=== PATIENT | male | born 1990 | race Caucasian/White ===

== ENCOUNTER 2019-02-26 10:43 | Inpatient (IN) ==
[2019-02-26] MEDS ORDERED: 0.9 % SODIUM CHLORIDE 1,000 ML IV ONE ×2 (10:47→15:46)
[2019-02-26] MEDS ORDERED: oxyCODONE HCL 5 MG TABLET PO PRN (11:07)
[2019-02-26] MEDS ORDERED: fentaNYL 100 MCG/2 ML VIAL IV PRN ×2 (11:10→16:18)
[2019-02-26 11:58] LABS: Hematocrit 40.3 % (41.0-55.0); Hemoglobin 13.4 g/dL (13.5-16.5); Mean Cell Volume 83.2 fL (80.0-100.0); Mean Corpuscular HGB Conc 33.3 g/dL (31.0-36.0); Mean Platelet Volume 10.2 fL (7.4-10.4); Platelet Count 129 K/mcL (140-440); RBC 4.84 M/mcL (4.50-5.90); Red Cell Distribution Width 14.4 % (11.5-14.5); WBC 10.2 K/mcL (4.5-11.0)
[2019-02-26] MEDS: PROMETHAZINE 25 MG/ML VIAL IV PRN ×2 (11:59→17:38)
[2019-02-26] MEDS ORDERED: CLINDAMYCIN 900 MG in DEXTROSE 5% IN WATER 50 ML IV SCH (12:00)
[2019-02-26] MEDS: 0.9 % SODIUM CHLORIDE 1,000 ML IV SCH ×4 (12:00→22:21)
[2019-02-26 12:10] LABS: INR 1.3 (0.9-1.1); Prothrombin Time 16.5 sec (11.9-14.5)
[2019-02-26 12:22] LABS: ALT/SGPT 54 U/l (0-40); AST/SGOT 24 U/l (0-37); Albumin 2.7 gm/dL (3.2-5.2); Albumin/Globulin Ratio 0.9 (1.0-2.3); Alkaline Phosphatase 214 U/L (39-117); Bilirubin,Direct 1.8 mg/dL (0.0-0.3); Bilirubin,Total 2.3 mg/dL (0.0-1.0); Blood Urea Nitrogen 30 mg/dl (6-20); Calcium 8.1 mg/dl (8.6-10.4); Carbon Dioxide 20 mmol/L (22-30); Chloride 98 mmol/L (96-108); Glomerular Filtration Rate 32; Glucose 137 mg/dL (70-105); Lactate Dehydrogenase 121 U/L (94-250); Magnesium 1.7 mg/dL (1.6-2.5); Potassium 3.1 mmol/L (3.3-5.1); Sodium 131 mmol/L (133-145); Triglycerides 228 mg/dl (<150); Uric Acid 6.5 mg/dL (2.5-8.0)
[2019-02-26 12:34] LABS: Hemoglobin A1C 5.3 % HGB (4.0-6.0)
[2019-02-26 12:40] LABS: Band Neutrophils % 23 % (0-10); Eosinophils % (Manual) 5 % (0-7); Monocytes % (Manual) 2 % (1-12); Platelet Estimate DECREASED (NORMAL); RBC Morphology NORMAL (NORMAL); Segmented Neutrophils % 70 % (38-78)
[2019-02-26] MEDS ORDERED: 0.9 % SODIUM CHLORIDE 10 ML SYRINGE IV SCH (14:00)
[2019-02-26] MEDS ORDERED: VANCOMYCIN PER PHARMACY IV SCH ×2 (15:55→18:12)
[2019-02-26] MEDS ORDERED: VANCOMYCIN 1,000 MG in 0.9 % SODIUM CHLORIDE 250 ML IV ONE (16:15)
--- NOTE | 2019-02-26 16:22 | General Surgery Progress Note ---
Subjective Patient reports: still having pain, pain is less Narrative: Note initiated : 02/26/19 at 4:20 pm Service Date, if different from initiated Date: [] Patient: Elder Smith 28 y/o M admitted on 02/26/19 for Cellulitis. Chief Complaint: [the patient complained of feeling weak and sleepy. Blood pressure was done, and systolic blood pressure was stated to be in the 60s. His heart rate was about 100. The patient was warm and dry and responded appropriately to questioning with movement of all extremities. He received 1 L normal saline and his blood pressure increased to 80/50 with a map of 64. He otherwise appears to be clinically stable. He has had 125 cc of urine output since admission. He does not complain of any chest pain or shortness of breath. The pain in his arm is about the same. The level of cellulitis has not advanced from prior exam On his upper medial arm or his chest wall. Repeat CBC and IVP has been ordered along with lactate & CRP] Objective Temp Pulse Resp BP Pulse Ox 98.1 F 125 H 18 101/53 96 02/26/19 11:29 02/26/19 11:29 02/26/19 11:29 02/26/19 11:29 02/26/19 11:29 - Additional Data Intake & Output - Last 24 hours: Intake & Output 02/24/19 02/25/19 02/26/19 02/27/19 05:59 05:59 05:59 05:59 Intake Total 1056 Output Total 125 Balance 931 Weight 345 lb 8 oz - General physical appearance well developed, well nourished, moderate pain - Eyes PERRL, normal ocular movement, icteric - ENT normal pinna, normal nares, normal mucosa, no hearing loss, no congestion - Neck no masses, no bruits, trachea midline, no lymphadenopathy, no venous distension - Respiratory normal expansion, normal respiratory effort, clear to auscultation - Cardiovascular Cardiovascular exam: Present: +S1, +S2, tachycardia (heart rate 160). Absent: JVD - Abdomen non tender (. Abdominal exam remains benign, nontender, without masses with good active bowel sounds), bowel sounds (present), surgical scars (none), masses (none) - Integumentary other ( area of cellulitis of left upper extremity and chest wall is unchanged; area of excoriation of right lateral abdominal wall is about the same) - Neurologic other (. Patient is alert, awake and answers all questions appropriately) - Psychiatric oriented to time, oriented to person, oriented to place, speech is normal, memory intact - Labs 02/26/19 11:24 02/26/19 11:24 Diabetes panel 02/26/19 02/26/19 Range/Units 11:24 11:24 Sodium 131 L (133-145) mmol/L Potassium 3.1 L (3.3-5.1) mmol/L Chloride 98 (96-108) mmol/L Carbon Dioxide 20 L (22-30) mmol/L BUN 30 H (6-20) mg/dl Creatinine 2.6 H (0.7-1.2) mg/dl Glucose 137 H (70-105) mg/dL Hemoglobin A1c 5.3 (4.0-6.0) % HGB Calcium 8.1 L (8.6-10.4) mg/dl AST 24 (0-37) U/l ALT 54 H (0-40) U/l Alkaline Phosphatase 214 H (39-117) U/L Total Protein 5.7 L (5.9-8.4) gm/dL Albumin 2.7 L (3.2-5.2) gm/dL Triglycerides 228 H (<150) mg/dl Calcium panel 02/26/19 Range/Units 11:24 Calcium 8.1 L (8.6-10.4) mg/dl Phosphorus 2.0 L (2.7-4.5) mg/dL Albumin 2.7 L (3.2-5.2) gm/dL Pituitary panel 02/26/19 Range/Units 11:24 Sodium 131 L (133-145) mmol/L Potassium 3.1 L (3.3-5.1) mmol/L Chloride 98 (96-108) mmol/L Carbon Dioxide 20 L (22-30) mmol/L BUN 30 H (6-20) mg/dl Creatinine 2.6 H (0.7-1.2) mg/dl Glucose 137 H (70-105) mg/dL Calcium 8.1 L (8.6-10.4) mg/dl Adrenal panel 02/26/19 Range/Units 11:24 Sodium 131 L (133-145) mmol/L Potassium 3.1 L (3.3-5.1) mmol/L Chloride 98 (96-108) mmol/L Carbon Dioxide 20 L (22-30) mmol/L BUN 30 H (6-20) mg/dl Creatinine 2.6 H (0.7-1.2) mg/dl Glucose 137 H (70-105) mg/dL Calcium 8.1 L (8.6-10.4) mg/dl Total Bilirubin 2.3 H (0.0-1.0) mg/dL AST 24 (0-37) U/l ALT 54 H (0-40) U/l Alkaline Phosphatase 214 H (39-117) U/L Total Protein 5.7 L (5.9-8.4) gm/dL Albumin 2.7 L (3.2-5.2) gm/dL Assessment and Plan (1) Acute sepsis Status: Acute Assessment and plan: Vancomycin and Zosyn added to antibiotic regimen. The Cleocin can be discontinued. Blood cultures are ordered. 1 L bolus of normal saline added. Repeat CBC and IP performed Current Visit: Yes (2) Acute renal injury due to sepsis Status: Acute Assessment and plan: Increase saline boluses and monitor urine output closely Current Visit: Yes (3) Abscess of axilla, left Status: Chronic Current Visit: No - Time Spent With Patient Total time spent is greater than 50% in coordination of care (as documented) at patient's floor/unit and/or counseling patient:
[2019-02-26 16:47] LABS: Basophils # (Auto) 0 K/mcL (0.0-0.3); Basophils % (Auto) 0 % (0.0-2.0); Eosinophils # (Auto) 0.4 K/mcL (0.0-0.7); Eosinophils % (Auto) 4.3 % (0.0-7.0); Granulocytes % (Auto) 89.3 % (38.0-78.0); Hematocrit 39.5 % (41.0-55.0); Hemoglobin 13.1 g/dL (13.5-16.5); Lymphocytes # (Auto) 0.2 K/mcL (1.5-4.8); Lymphocytes % (Auto) 2.5 % (15.5-49.0); Mean Cell Volume 83.5 fL (80.0-100.0); Mean Corpuscular HGB Conc 33.1 g/dL (31.0-36.0); Mean Platelet Volume 10.7 fL (7.4-10.4); Monocytes # (Auto) 0.4 K/mcL (0.1-0.9); Monocytes % (Auto) 3.9 % (1.0-12.0); Platelet Count 130 K/mcL (140-440); RBC 4.73 M/mcL (4.50-5.90); Red Cell Distribution Width 14.9 % (11.5-14.5); WBC 9.5 K/mcL (4.5-11.0)
[2019-02-26] MEDS ORDERED: PANTOPRAZOLE 40 MG TABLET PO SCH (17:00)
--- NOTE | 2019-02-26 17:11 | Internal Medicine Consult Note ---
Medical - CN: HPI - Data of Consult Consult date: 02/26/19 Requesting physician: Gabi Mistry Primary Care Provider: VANIA Shin - Consult Narrative History of present illness: Mr. Smith is a 28 year old M Who presented to the ED on Monday with a swelling in his left axilla diagnosed with skin abscess likely extending from carbuncle. Anabiotic's and tramadol and to follow-up with Dr. Mistry for further evaluation as it is felt that he may need further I&D than what was done in the ED. Patient took Bactrim but seem to have an allergic reaction to it including hives and pruritus. He states his erythema and tenderness is also progressed over the weekend. He saw Dr. Mistry in his office today and was found to be hypotensive as well and systolics in the 70s. And was thus admitted in the hospital. Shortly after admission he was found to be hypotensive. Patient is asymptomatic at rest. However does note that he is quite lightheaded when he is up to move around is been so for the past few days. Had some nausea and chills denies fever. Said a dry cough for couple days. He was found to have a bandemia as well as acute kidney injury. An elevated bilirubin. In August he was evaluated for gallstones. It was thought that he had a gallstone that may have passed at that time he had an ultrasound MRCP which did not catch any stone at that time. He is found to have fatty liver on imaging. But he is noted to have a bilirubin of 2.3 mostly conjugated at this time. Denies any right upper quadrant abdominal pain currently. Review of Systems: Pertinent positives as above. Denies headache/fever/vomiting/chest or abdominal pain/cough/dyspnea/diarrhea. Remaining 10 point review of systems reviewed negative CC: Gabi Mistry MD Medical - CN: PM Medical history: Past medical history: Fatty liver Obesity Hypertension GERD Past surgical history: None Family history: Mother DJD of spine father's history is unknown Social history: Patient quit smoking a year ago Drinks alcohol about 10-15 drinks a month, was a heavy drinker in college. Lives at home with family/ Medical - CN: Meds Home Medications Medication Instructions Recorded Confirmed Type Losartan Potassium 50 mg PO DAILY 10/17/18 02/26/19 History ranitidine 300 mg capsule 300 mg PO BID 02/23/19 02/26/19 History Allergies Allergy/AdvReac Type Severity Reaction Status Date / Time Sulfa (Sulfonamide Allergy Intermediate Hives Verified 02/26/19 10:22 Antibiotics) Medical - CN: Exam - Constitutional Vitals: Temp Pulse Resp BP Pulse Ox 98.8 F 96 H 18 86/50 98 02/26/19 16:02 02/26/19 16:07 02/26/19 11:29 02/26/19 16:07 02/26/19 16:07 Exam: General: Alert, Awake, No acute Distress, obese Eyes/N/T: EOMI, PEERL, DMM Head/Neck: neck supple, normocephalic atraumatic CV: RRR, No murmurs, normal s1/s2 Pulm: Clear b/l, no wheezing/rhonchi/rales Trunk: Induration and surrounding erythema left axillary region Abd: soft, nontender, +BS x4 Ext: no clubbing/cyanosis/edema, cap refill less than 3 seconds, pulses 2+ Neuro: Alert, no focal deficits, moves all extremities, CN 2-12 grossly intact, symmetrical strength b/l upper/lower, sensations intact b/l upper/lower Skin: warm/dry Medical - CN: Result - Labs CBC & Chem 7: 02/26/19 15:50 02/26/19 11:24 Labs: Short CBC 02/26/19 02/26/19 Range/Units 11:24 15:50 WBC 10.2 9.5 (4.5-11.0) K/mcL Hgb 13.4 L 13.1 L (13.5-16.5) g/dL Hct 40.3 L 39.5 L (41.0-55.0) % Plt Count 129 L 130 L (140-440) K/mcL BMP 02/26/19 11:24 Sodium 131 L Potassium 3.1 L Chloride 98 Carbon Dioxide 20 L BUN 30 H Creatinine 2.6 H Glucose 137 H Calcium 8.1 L Liver Function 02/26/19 Range/Units 11:24 Total Bilirubin 2.3 H (0.0-1.0) mg/dL Direct Bilirubin 1.8 H (0.0-0.3) mg/dL GGT 220 H (8-61) U/L AST 24 (0-37) U/l ALT 54 H (0-40) U/l Alkaline Phosphatase 214 H (39-117) U/L Albumin 2.7 L (3.2-5.2) gm/dL Medical - CN: A/P - Narrative A/P Narrative: A: *Left axillary skin abscess with surrounding cellulitis: -Original ED cultures with MSSA *Sepsis, Hypotensive initially but responsive to IV fluids: -Lactic acidosis *Hyperbilirubinemia, conjugated /elevated ALP: *Hyponatremia/hypokalemia: *LYLY: 2/2 above *Fatty liver: *Obesity: *HTN: On losartan 50 mill grams daily *GERD: * P: -IVF's -Zosyn/vanco, deescalate pending blood cx -Dr. Mistry on case -PRN electrolyte replacement -GB u/s -ARB held - -ppx: Lovenox/home PPI
[2019-02-26 17:13] LABS: ALT/SGPT 49 U/l (0-40); AST/SGOT 22 U/l (0-37); Albumin 2.6 gm/dL (3.2-5.2); Albumin/Globulin Ratio 0.9 (1.0-2.3); Alkaline Phosphatase 188 U/L (39-117); Bilirubin,Direct 1.8 mg/dL (0.0-0.3); Bilirubin,Total 2.3 mg/dL (0.0-1.0); Blood Urea Nitrogen 32 mg/dl (6-20); Carbon Dioxide 19 mmol/L (22-30); Chloride 101 mmol/L (96-108); Globulin 2.9 gm/dL (2.2-3.7); Glomerular Filtration Rate 28; Glucose 91 mg/dL (70-105); Lactate Dehydrogenase 121 U/L (94-250); Magnesium 1.8 mg/dL (1.6-2.5); Phosphorous 2.9 mg/dL (2.7-4.5); Potassium 3.1 mmol/L (3.3-5.1); Sodium 134 mmol/L (133-145); Triglycerides 229 mg/dl (<150); Uric Acid 6.5 mg/dL (2.5-8.0)
[2019-02-26] MEDS ORDERED: POTASSIUM CHLORIDE 20 MEQ TABLET PO ONE (17:16)
[2019-02-26] MEDS ORDERED: PIPERACILLIN SODIUM/TAZOBACTAM 3.375 GM in DEXTROSE 5% IN WATER 50 ML IV SCH (18:00)
[2019-02-26] MEDS ORDERED: ACETAMINOPHEN 325 MG TABLET PO PRN (19:54)
[2019-02-26 20:03] LABS: Appearance,Urine HAZY; Bilirubin,Urine NEG (NEG); Color,Urine YELLOW; Culture Indicated,Urine NO; Glucose,Urine (UA) NEGATIVE (NEG); Ketones,Urine NEG (NEG); Leukocyte Esterase,Urine NEG /uL (NEG); Nitrate,Urine NEG (NEG); Protein,Urine NEG (NEG); Specific Gravity,Urine 1.011 (1.000-1.035); Urine Blood NEG mg/dL (<0.03)
[2019-02-26] MEDS: DOCUSATE SODIUM 100 MG CAPSULE PO SCH (20:39)
[2019-02-26] MEDS ORDERED: DOCUSATE SODIUM 100 MG CAPSULE PO SCH (21:00)
[2019-02-26] MEDS: VANCOMYCIN 1,500 MG in 0.9 % SODIUM CHLORIDE 500 ML IV SCH (21:32)
[2019-02-26] MEDS: 0.9 % SODIUM CHLORIDE 10 ML SYRINGE IV SCH (21:43)
[2019-02-26] MEDS ORDERED: VANCOMYCIN 1,500 MG in 0.9 % SODIUM CHLORIDE 500 ML IV SCH (22:00)
[2019-02-26] MEDS: PIPERACILLIN SODIUM/TAZOBACTAM 3.375 GM in DEXTROSE 5% IN WATER 50 ML IV SCH (23:31)
[2019-02-27] MEDS: fentaNYL 100 MCG/2 ML VIAL IV PRN ×5 (00:16→23:30)
[2019-02-27] MEDS ORDERED: NOREPINEPHRINE BITARTRATE 4 MG/4 ML VIAL IV ONE (03:05)
[2019-02-27] MEDS: 0.9 % SODIUM CHLORIDE 250 ML IV SCH ×2 (03:23→20:11)
[2019-02-27] MEDS: NOREPINEPHRINE BITARTRATE 16 MG in 0.9 % SODIUM CHLORIDE 234 ML IV SCH (03:23)
[2019-02-27] MEDS: 0.9 % SODIUM CHLORIDE 1,000 ML IV SCH ×4 (03:25→20:12)
[2019-02-27] MEDS: ACETAMINOPHEN 650 MG/65 ML BOTTLE IV PRN ×2 (03:33→08:06)
[2019-02-27 05:22] LABS: Hematocrit 37.2 % (41.0-55.0); Hemoglobin 12.5 g/dL (13.5-16.5); Mean Cell Volume 83.7 fL (80.0-100.0); Mean Corpuscular HGB Conc 33.6 g/dL (31.0-36.0); Mean Platelet Volume 10.6 fL (7.4-10.4); Platelet Count 155 K/mcL (140-440); RBC 4.44 M/mcL (4.50-5.90); Red Cell Distribution Width 14.8 % (11.5-14.5); WBC 13.8 K/mcL (4.5-11.0)
[2019-02-27 05:42] LABS: ALT/SGPT 45 U/l (0-40); AST/SGOT 18 U/l (0-37); Albumin 2.6 gm/dL (3.2-5.2); Albumin/Globulin Ratio 0.8 (1.0-2.3); Alkaline Phosphatase 185 U/L (39-117); Bilirubin,Direct 2.5 mg/dL (0.0-0.3); Bilirubin,Total 3.1 mg/dL (0.0-1.0); Blood Urea Nitrogen 30 mg/dl (6-20); Calcium 7.9 mg/dl (8.6-10.4); Carbon Dioxide 18 mmol/L (22-30); Chloride 102 mmol/L (96-108); Globulin 3.1 gm/dL (2.2-3.7); Glomerular Filtration Rate 33; Glucose 95 mg/dL (70-105); Lactate Dehydrogenase 138 U/L (94-250); Magnesium 1.6 mg/dL (1.6-2.5); Phosphorous 2.5 mg/dL (2.7-4.5); Potassium 3.6 mmol/L (3.3-5.1); Sodium 133 mmol/L (133-145); Triglycerides 244 mg/dl (<150); Uric Acid 5.3 mg/dL (2.5-8.0)
[2019-02-27] MEDS: 0.9 % SODIUM CHLORIDE 10 ML SYRINGE IV SCH ×5 (05:47→22:27)
[2019-02-27] MEDS: PIPERACILLIN SODIUM/TAZOBACTAM 3.375 GM in DEXTROSE 5% IN WATER 50 ML IV SCH (05:47)
[2019-02-27 06:07] LABS: Band Neutrophils % 6 % (0-10); Eosinophils % (Manual) 4 % (0-7); Lymphocytes % 4 % (15-49); Monocytes % (Manual) 3 % (1-12); Platelet Estimate NORMAL (NORMAL); RBC Morphology NORMAL (NORMAL); Segmented Neutrophils % 83 % (38-78)
--- NOTE | 2019-02-27 06:23 | Internal Med Progress Note ---
Medical - PN: Subj Patient information: Note initiated : 02/27/19 at 6:17 am Service Date, if different from initiated Date: [] Patient: Elder Smith 28 y/o M admitted on 02/26/19 for Cellulitis. Chief Complaint: [] Interval history: Mr. Smith is a 28 year old M Who presented to the ED on Monday with a swelling in his left axilla diagnosed with skin abscess likely extending from carbuncle. Anabiotic's and tramadol and to follow-up with Dr. Mistry for further evaluation as it is felt that he may need further I&D than what was done in the ED. Patient took Bactrim but seem to have an allergic reaction to it including hives and pruritus. He states his erythema and tenderness is also progressed over the weekend. He saw Dr. Mistry in his office today and was found to be hypotensive as well and systolics in the 70s. And was thus admitted in the hospital. Shortly after admission he was found to be hypotensive. Patient is asymptomatic at rest. However does note that he is quite lightheaded when he is up to move around is been so for the past few days. Had some nausea and chills denies fever. Said a dry cough for couple days. He was found to have a bandemia as well as acute kidney injury. An elevated bilirubin. In August he was evaluated for gallstones. It was thought that he had a gallstone that may have passed at that time he had an ultrasound MRCP which did not catch any stone at that time. He is found to have fatty liver on imaging. But he is noted to have a bilirubin of 2.3 mostly conjugated at this time. Denies any right upper quadrant abdominal pain currently. 02/27 Patient's blood pressure trended down overnight had to be put on vasopressors. Febrile overnight. States he feels about the same as yesterday, Tired. Has a dry cough no other complaints. Review of Systems: denies headache/fever/chills/nausea/vomiting/chest or abdominal pain/cough/dyspnea/diarrhea. Otherwise see above. - Constitutional Vitals: Vital Signs Temp Pulse Resp BP Pulse Ox 99.8 F H 106 H 23 H 110/59 96 02/27/19 04:16 02/27/19 04:16 02/27/19 04:16 02/27/19 04:16 02/27/19 04:16 Period Temp Pulse Resp BP Sys/Calderón Pulse Ox Last 24 Hr 97.9 F-101.2 F 93-125 16-33 71-124/37-81 92-100 Intake and Output 02/26/19 02/27/19 02/27/19 21:59 05:59 13:59 Intake Total 2620 3215 Output Total 125 1125 Balance 2495 2090 Weight 160.209 kg Intake & Output: Intake & Output 02/26/19 02/27/19 02/27/19 21:59 05:59 13:59 Intake Total 2620 3215 Output Total 125 1125 Balance 2495 2090 Weight 160.209 kg Intake: IV 2300 1615 Sodium Chloride 0.9% 1,000 ml @ 1000 1000 200 mls/hr IV .Q5H [facility] Rx#: [id number] Zosyn 3.375 gm In Dextrose 5% 50 50 in Water 50 ml @ 100 mls/hr IV Q6H [facility] Rx#:[id number] Vancomycin 1,000 mg In Sodium 250 Chloride 0.9% 250 ml @ 250 mls/ hr IV ONCE ONE Rx#:[id number] Vancomycin 1,500 mg In Sodium 500 Chloride 0.9% 500 ml @ 333.3 mls/hr IV Q12H [facility] Rx#: [id number] Oral 320 1600 Output: Void Amount 125 1125 Other: Urine Appearance Clear Sediment Urine Color Dark Mercedez Dark Mercedez Urine Odor Strong Exam: General: Alert, Awake, No acute Distress, obese Eyes/N/T: EOMI, Head/Neck: neck supple, CV: RRR, No murmurs, Pulm: Clear b/l, no wheezing/rhonchi/rales Trunk: Induration and surrounding erythema left axillary region, TTP Abd: soft, nontender, +BS x4 Ext: no clubbing/cyanosis Neuro: Alert, no focal deficits, moves all extremities, Skin: warm/dry Medical - PN: Obj Da - Labs CBC & Chem 7: 02/27/19 03:51 02/27/19 03:51 Labs: Abnormal Lab Results 02/27/19 02/27/19 02/26/19 03:51 03:51 19:26 WBC 13.8 H RBC 4.44 L Hgb 12.5 L Hct 37.2 L RDW 14.8 H Plt Count MPV 10.6 H Gran % Lymph % (Auto) Gran # Lymph # (Auto) Seg Neutrophils % 83 H Band Neutrophils % Lymphocytes % 4 L Platelet Estimate PT INR Sodium Potassium Carbon Dioxide 18 L BUN 30 H Creatinine 2.5 H Glucose Calcium 7.9 L Phosphorus 2.5 L Total Bilirubin 3.1 H Direct Bilirubin 2.5 H GGT 204 H ALT 45 H Alkaline Phosphatase 185 H C-Reactive Protein Total Protein 5.7 L Albumin 2.6 L Albumin/Globulin Ratio 0.8 L Triglycerides 244 H Urine Urobilinogen 2.0 A 02/26/19 02/26/19 02/26/19 15:50 15:50 15:50 WBC RBC Hgb 13.1 L Hct 39.5 L RDW 14.9 H Plt Count 130 L MPV 10.7 H Gran % 89.3 H Lymph % (Auto) 2.5 L Gran # 8.5 H Lymph # (Auto) 0.2 L Seg Neutrophils % Band Neutrophils % Lymphocytes % Platelet Estimate PT INR Sodium Potassium 3.1 L Carbon Dioxide 19 L BUN 32 H Creatinine 2.9 H Glucose Calcium 8.0 L Phosphorus Total Bilirubin 2.3 H Direct Bilirubin 1.8 H GGT 211 H ALT 49 H Alkaline Phosphatase 188 H C-Reactive Protein 20.1 H Total Protein 5.5 L Albumin 2.6 L Albumin/Globulin Ratio 0.9 L Triglycerides 229 H Urine Urobilinogen 02/26/19 02/26/19 02/26/19 11:24 11:24 11:24 WBC RBC Hgb 13.4 L Hct 40.3 L RDW Plt Count 129 L MPV Gran % Lymph % (Auto) Gran # Lymph # (Auto) Seg Neutrophils % Band Neutrophils % 23 H Lymphocytes % Platelet Estimate Decreased A PT 16.5 H INR 1.3 H Sodium 131 L Potassium 3.1 L Carbon Dioxide 20 L BUN 30 H Creatinine 2.6 H Glucose 137 H Calcium 8.1 L Phosphorus 2.0 L Total Bilirubin 2.3 H Direct Bilirubin 1.8 H GGT 220 H ALT 54 H Alkaline Phosphatase 214 H C-Reactive Protein Total Protein 5.7 L Albumin 2.7 L Albumin/Globulin Ratio 0.9 L Triglycerides 228 H Urine Urobilinogen Meds: Medications Acetaminophen (Tylenol) 650 mg PO Q4HP PRN PRN Reason: PAIN/FEVER > 101 Last Admin: 02/26/19 20:30 Dose: 650 mg Documented by: Docusate Sodium (Colace) 100 mg PO BID [facility] Last Admin: 02/26/19 20:39 Dose: Not Given Documented by: Enoxaparin Sodium (Lovenox) 40 mg SQ DAILY [facility] Fentanyl (Sublimaze) 25 mcg IV Q3HP PRN PRN Reason: PAIN LEVEL > 6 Last Admin: 02/27/19 03:58 Dose: 25 mcg Documented by: Sodium Chloride (Sodium Chloride 0.9%) 1,000 mls @ 200 mls/hr IV .Q5H [facility] Last Admin: 02/27/19 03:25 Dose: 200 mls/hr Documented by: Piperacillin Sod/Tazobactam (Sod 3.375 gm/ Dextrose) 50 mls @ 100 mls/hr IV Q6H [facility]; Protocol Last Admin: 02/27/19 05:47 Dose: 100 mls/hr Documented by: Vancomycin HCl 1,500 mg/ (Sodium Chloride) 500 mls @ 333.3 mls/hr IV Q12H [facility] Last Infusion: 02/27/19 04:26 Dose: Infused Documented by: Acetaminophen (Ofirmev) 650 mg in 65 mls @ 130 mls/hr IV Q4-6HP PRN PRN Reason: PAIN/FEVER > 101 Last Infusion: 02/27/19 04:26 Dose: Infused Documented by: Norepinephrine Bitartrate 16 (mg/ Sodium Chloride) 250 mls @ 9.38 mls/hr IV Q24H [facility]; Protocol Last Admin: 02/27/19 03:23 Dose: 10 mcg/min, 9.38 mls/hr Documented by: Sodium Chloride (Sodium Chloride 0.9%) 250 mls @ 20 mls/hr IV .[id number] [facility] Last Admin: 02/27/19 03:23 Dose: 15 mls/hr Documented by: Pantoprazole Sodium (Protonix) 40 mg PO BIDAC [facility] Promethazine HCl (Phenergan) 12.5 mg IV Q6HP PRN PRN Reason: Nausea And Vomiting Sodium Chloride (Saline Flush) 10 ml IV Q8 [facility] Last Admin: 02/27/19 05:47 Dose: Not Given Documented by: Vancomycin HCl (Vancomycin Per Pharmacy) 1 order IV UD [facility]; Protocol Medical - PN: A/P - Time Spent With Patient Total time spent is greater than 50% in coordination of care (as documented) at patient's floor/unit and/or counseling patient: - Narrative A/P Narrative: A: *Left axillary skin abscess with surrounding cellulitis: -Original ED cultures with MSSA *Septic Shock: 2/2 above -febrile, lactate ok, bandemia improved *LYLY, concern for ATN: 2/2 above -good UOP *Hyponatremia/hypokalemia: resolved *Hyperbilirubinemia, conjugated /elevated ALP: -GB unremarkable, a few polyps but no stones -cholestasis suspect related to Sepsis*Fatty liver: *Obesity: *HTN: On losartan 50 mill grams daily *GERD: * P: -IVF's -vasopressor, wean off -PICC, monitor CVP's -broaden Zosyn to merrem for now given worsening clinical status/vanco, deescalate as soon as able. Did get IV clindamycin yesterday. -pending BC -monitor PCT -CT imaging of infection site, -Dr. Mistry on case -PRN electrolyte replacement -ARB held for hypoTN - -ppx: Lovenox/home PPI
[2019-02-27] MEDS: PANTOPRAZOLE 40 MG TABLET PO SCH ×2 (07:38→17:33)
[2019-02-27] MEDS: DOCUSATE SODIUM 100 MG CAPSULE PO SCH ×3 (08:08→20:41)
--- NOTE | 2019-02-27 08:43 | Ultrasound Report ---
History: Obstructive liver enzymes FINDINGS: The liver is mildly enlarged. The parenchyma is mildly echogenic suggesting mild fatty infiltration. There is no evidence of a mass. Doppler shows normal blood flow in the hepatic and portal veins. Size of liver has not changed significantly from the prior abdomen CT done on 08/17/18. Within the neck of the gallbladder there is a 2 x 3 x 4 mm noncalcified nodule. This did not move. This is probably a small polyp. Two small polyps or seen in the gallbladder on the prior ultrasound done on 08/17/18. Only one is clearly identified on today's study. Gallbladder wall is normal in thickness and measures 2 mm. Patient was nontender while scanning over the gallbladder. The common bile duct is mildly dilated measures 5 mm. There is no dilatation of the intrahepatic ducts. Common bile duct measured 4.6 mm on 08/17/18. Visualized portions of the pancreas are normal. Portions are obscured by overlying bowel gas. No ascites is present. IMPRESSION: Small polyp in the neck of the gallbladder and no evidence of thickening or inflammation of the gallbladder wall. Mildly dilated common bile duct. Mild hepatomegaly with mild fatty infiltration Interpreted and Authenticated by: Venancio Decker 02/27/19
[2019-02-27] MEDS ORDERED: ENOXAPARIN 40 MG/0.4 ML SYRINGE SQ SCH ×2 (09:00)
[2019-02-27] MEDS: VANCOMYCIN 1,500 MG in 0.9 % SODIUM CHLORIDE 500 ML IV SCH ×2 (09:29→22:28)
[2019-02-27] MEDS ORDERED: ALBUMIN HUMAN 12.5 GM/50 ML BAG IV ONE (09:56)
[2019-02-27] MEDS ORDERED: MEROPENEM 1 GM in 0.9 % SODIUM CHLORIDE 50 ML IV SCH (10:00)
--- NOTE | 2019-02-27 10:48 | Cat Scan Report ---
CLINICAL INFORMATION: Cellulitis and edema in the left axilla, evaluate for abscess COMPARISON: None TECHNIQUE: 2.5 mm axial slices were obtained from the lung apices through the bases without intravenous contrast. Sagittal, coronal and axial reformatted images were processed and reviewed at bone, lung and soft tissue windows. 7 mm axial MIP images were also reconstructed. Radiation exposure was limited using dose reduction technology. FINDINGS: There is moderate edema/cellulitis in the left axilla and the anterior left lateral chest wall. There are a few reactive lymph nodes in the left axilla which measure up to 1.4 x 2.4 cm. There is no evidence of a mass or abscess in this region. Patient does have mild bilateral gynecomastia. There are multiple small scattered ill-defined nodular infiltrates throughout both lungs. The greatest involvement is in the upper lobes and superior segments of the lower lobes. There is milder involvement in the lung bases. The majority of them are located towards the periphery of the lung. The largest and most densely consolidated infiltrate abuts the pleura superiorly and medially in the right lower lobe. It Measures 1.5 x 2.2 cm. There is no central necrosis of any of the infiltrates or pulmonary abscess. No lobar consolidation is present. The central airways appear normal. There is no pleural effusion and there are no enlarged lymph nodes within the mediastinum or lopez. The heart is normal in size and contour. The aorta is normal in caliber. IMPRESSION: Cellulitis in the left axilla and left anterolateral chest wall Multiple small nodular infiltrates in both lungs. This is a nonspecific pattern which may be associated with atypical infection such as an opportunistic infection, fungal infection, noninfectious organizing pneumonia, cryptogenic organizing pneumonia and collagen vascular disease. Interpreted and Authenticated by: Venancio Decker 02/27/19
--- NOTE | 2019-02-27 13:44 | General Surgery Progress Note ---
Subjective Patient reports: feels better, pain is less, tolerating a regular diet, flatus, no bowel movement, fever Narrative: Note initiated : 02/27/19 at 1:43 pm Service Date, if different from initiated Date: [] Patient: Elder Smith 28 y/o M admitted on 02/26/19 for Cellulitis. Chief Complaint: [patient states that he feels better. He has less discomfort in the left upper extremity. He feels stronger. He has had a low-grade temperature up to 100.5. He remains tachycardic, but his blood pressure is bett er controlled with a map of 85. White blood count 13.8, hemoglobin 12.5, hematocrit 37.2, BUN 30, creatinine 2.5. Gallbladder ultrasound was normal except for small polyp. CT does not reveal any residual abscess in the axilla, but he does have nodular infiltrates peripherally in both lungs. These will have to be monitored closely.] Objective Temp Pulse Resp BP Pulse Ox 98.9 F 108 H 21 129/76 100 02/27/19 12:00 02/27/19 12:00 02/27/19 12:00 02/27/19 12:00 02/27/19 12:00 - Additional Data Intake & Output - Last 24 hours: Intake & Output 02/25/19 02/26/19 02/27/19 02/28/19 05:59 05:59 05:59 05:59 Intake Total 6891 2489 Output Total 1250 3975 Balance 5641 -1486 Weight 353 lb 3.2 oz - General physical appearance well developed, well nourished, no distress - Eyes PERRL, normal ocular movement - ENT normal pinna, normal nares, normal mucosa, no congestion - Neck no masses, no bruits, trachea midline, no lymphadenopathy, no venous distension - Respiratory normal expansion, normal respiratory effort, clear to auscultation - Cardiovascular Cardiovascular exam: Present: normal rate and rhythm, +S1, +S2, tachycardia. Absent: JVD - Abdomen soft, non tender, bowel sounds, masses - Integumentary other (cellulitis of left anterior chest, left upper medial extremity is significantly improved and is regressing) - Neurologic normal coordination, normal sensation - Musculoskeletal normal gait, normal posture - Psychiatric oriented to time, oriented to person, oriented to place, speech is normal, memory intact - Labs 02/27/19 03:51 02/27/19 03:51 Diabetes panel 02/26/19 02/27/19 Range/Units 15:50 03:51 Sodium 134 133 (133-145) mmol/L Potassium 3.1 L 3.6 (3.3-5.1) mmol/L Chloride 101 102 (96-108) mmol/L Carbon Dioxide 19 L 18 L (22-30) mmol/L BUN 32 H 30 H (6-20) mg/dl Creatinine 2.9 H 2.5 H (0.7-1.2) mg/dl Glucose 91 95 (70-105) mg/dL Calcium 8.0 L 7.9 L (8.6-10.4) mg/dl AST 22 18 (0-37) U/l ALT 49 H 45 H (0-40) U/l Alkaline Phosphatase 188 H 185 H (39-117) U/L Total Protein 5.5 L 5.7 L (5.9-8.4) gm/dL Albumin 2.6 L 2.6 L (3.2-5.2) gm/dL Triglycerides 229 H 244 H (<150) mg/dl Calcium panel 02/26/19 02/27/19 Range/Units 15:50 03:51 Calcium 8.0 L 7.9 L (8.6-10.4) mg/dl Phosphorus 2.9 2.5 L (2.7-4.5) mg/dL Albumin 2.6 L 2.6 L (3.2-5.2) gm/dL Pituitary panel 02/26/19 02/27/19 Range/Units 15:50 03:51 Sodium 134 133 (133-145) mmol/L Potassium 3.1 L 3.6 (3.3-5.1) mmol/L Chloride 101 102 (96-108) mmol/L Carbon Dioxide 19 L 18 L (22-30) mmol/L BUN 32 H 30 H (6-20) mg/dl Creatinine 2.9 H 2.5 H (0.7-1.2) mg/dl Glucose 91 95 (70-105) mg/dL Calcium 8.0 L 7.9 L (8.6-10.4) mg/dl Adrenal panel 02/26/19 02/27/19 Range/Units 15:50 03:51 Sodium 134 133 (133-145) mmol/L Potassium 3.1 L 3.6 (3.3-5.1) mmol/L Chloride 101 102 (96-108) mmol/L Carbon Dioxide 19 L 18 L (22-30) mmol/L BUN 32 H 30 H (6-20) mg/dl Creatinine 2.9 H 2.5 H (0.7-1.2) mg/dl Glucose 91 95 (70-105) mg/dL Calcium 8.0 L 7.9 L (8.6-10.4) mg/dl Total Bilirubin 2.3 H 3.1 H (0.0-1.0) mg/dL AST 22 18 (0-37) U/l ALT 49 H 45 H (0-40) U/l Alkaline Phosphatase 188 H 185 H (39-117) U/L Total Protein 5.5 L 5.7 L (5.9-8.4) gm/dL Albumin 2.6 L 2.6 L (3.2-5.2) gm/dL Assessment and Plan (1) Acute sepsis Status: Acute Assessment and plan: Vancomycin and Zosyn added to antibiotic regimen. The Cleocin can be dis continued. Blood cultures are ordered Current Visit: Yes (2) Acute renal injury due to sepsis Status: Acute Assessment and plan: Increase saline boluses and monitor urine output closely Current Visit: Yes (3) Abscess of axilla, left Status: Chronic Current Visit: No - Time Spent With Patient Total time spent is greater than 50% in coordination of care (as documented) at patient's floor/unit and/or counseling patient:
[2019-02-27] MEDS: ceFAZolin 1 GM VIAL IV SCH ×2 (14:53→22:27)
[2019-02-27] MEDS ORDERED: ACETAMINOPHEN 325 MG TABLET PO SCH (15:00)
--- NOTE | 2019-02-27 15:24 | Ultrasound Report ---
History: Pain and swelling left axilla and status post recent surgical drainage of an abscess in the axilla FINDINGS: There is generalized induration of the skin and deep subcutaneous tissues in the left axilla. This corresponds with the region of pain and swelling. There is no evidence of residual or recurrent abscess. No enlarged lymph nodes are identified. There is no seroma. IMPRESSION: Cellulitis and no evidence recurrent abscess Interpreted and Authenticated by: Venancio Decker 02/27/19
[2019-02-27] MEDS: ENOXAPARIN 40 MG/0.4 ML SYRINGE SQ SCH (20:08)
[2019-02-27] MEDS: oxyCODONE HCL 5 MG TABLET PO PRN ×2 (20:09→23:30)
[2019-02-27] MEDS: ACETAMINOPHEN 500 MG TABLET PO SCH (20:09)
[2019-02-27] MEDS: PROMETHAZINE 25 MG/ML VIAL IV PRN (20:11)
[2019-02-27] MEDS: traZODone HCL 50 MG TABLET PO PRN ×2 (22:30→23:02)
[2019-02-28] MEDS: 0.9 % SODIUM CHLORIDE 1,000 ML IV SCH ×4 (00:09→07:29)
[2019-02-28] MEDS: PROMETHAZINE 25 MG/ML VIAL IV PRN ×3 (02:11→20:44)
[2019-02-28] MEDS: NOREPINEPHRINE BITARTRATE 16 MG in 0.9 % SODIUM CHLORIDE 234 ML IV SCH (02:38)
[2019-02-28] MEDS: 0.9 % SODIUM CHLORIDE 250 ML IV SCH ×2 (02:38→14:51)
[2019-02-28] MEDS: oxyCODONE HCL 5 MG TABLET PO PRN ×4 (03:48→22:19)
[2019-02-28 05:24] LABS: Hematocrit 34.7 % (41.0-55.0); Hemoglobin 11.8 g/dL (13.5-16.5); Mean Cell Volume 82.9 fL (80.0-100.0); Mean Corpuscular HGB Conc 33.9 g/dL (31.0-36.0); Mean Platelet Volume 10.1 fL (7.4-10.4); Platelet Count 144 K/mcL (140-440); RBC 4.19 M/mcL (4.50-5.90); Red Cell Distribution Width 15.2 % (11.5-14.5); WBC 10.5 K/mcL (4.5-11.0)
[2019-02-28 05:46] LABS: ALT/SGPT 33 U/l (0-40); AST/SGOT 16 U/l (0-37); Albumin 2.5 gm/dL (3.2-5.2); Albumin/Globulin Ratio 0.8 (1.0-2.3); Alkaline Phosphatase 167 U/L (39-117); Bilirubin,Direct 1.9 mg/dL (0.0-0.3); Bilirubin,Total 2.7 mg/dL (0.0-1.0); Blood Urea Nitrogen 14 mg/dl (6-20); Calcium 8.2 mg/dl (8.6-10.4); Carbon Dioxide 19 mmol/L (22-30); Chloride 108 mmol/L (96-108); Glomerular Filtration Rate 81; Glucose 112 mg/dL (70-105); Lactate Dehydrogenase 136 U/L (94-250); Magnesium 1.8 mg/dL (1.6-2.5); Potassium 3.3 mmol/L (3.3-5.1); Sodium 139 mmol/L (133-145); Triglycerides 188 mg/dl (<150); Uric Acid 3.9 mg/dL (2.5-8.0)
[2019-02-28] MEDS: ceFAZolin 1 GM VIAL IV SCH ×3 (05:51→22:06)
[2019-02-28] MEDS: 0.9 % SODIUM CHLORIDE 10 ML SYRINGE IV SCH ×3 (05:52→22:07)
[2019-02-28 06:09] LABS: Band Neutrophils % 17 % (0-10); Eosinophils % (Manual) 7 % (0-7); Lymphocytes % 11 % (15-49); Monocytes % (Manual) 4 % (1-12); Platelet Estimate NORMAL (NORMAL); RBC Morphology NORMAL (NORMAL); Segmented Neutrophils % 61 % (38-78); Toxic Granulation 2+ (NONE SEEN)
[2019-02-28] MEDS ORDERED: NOREPINEPHRINE BITARTRATE 16 MG in 0.9 % SODIUM CHLORIDE 234 ML IV PRN (07:15)
[2019-02-28] MEDS ORDERED: POTASSIUM CHLORIDE 20 MEQ PACKET PO ONE (07:30)
[2019-02-28] MEDS: PANTOPRAZOLE 40 MG TABLET PO SCH ×2 (07:38→17:47)
[2019-02-28] MEDS ORDERED: 0.9 % SODIUM CHLORIDE 1,000 ML IV SCH (07:59)
[2019-02-28] MEDS: LACTATED RINGERS 1,000 ML IV SCH ×2 (08:30→22:20)
[2019-02-28] MEDS: LEVOFLOXACIN 750 MG/150 ML BAG IV SCH (08:30)
--- NOTE | 2019-02-28 09:03 | Internal Med Progress Note ---
Medical - PN: Subj Patient information: Note initiated : 02/28/19 at 9:01 am Service Date, if different from initiated Date: [] Patient: Elder Smith a 28 y/o M admitted on 02/26/19 for Cellulitis. Chief Complaint: [] Interval history: Mr. Smith is a 28 year old M Who presented to the ED on Monday with a swelling in his left axilla diagnosed with skin abscess likely extending from carbuncle. Anabiotic's and tramadol and to follow-up with Dr. Mistry for further evaluation as it is felt that he may need further I&D than what was done in the ED. Patient took Bactrim but seem to have an allergic reaction to it including hives and pruritus. He states his erythema and tenderness is also progressed over the weekend. He saw Dr. Mistry in his office today and was found to be hypotensive as well and systolics in the 70s. And was thus admitted in the hospital. Shortly after admission he was found to be hypotensive. Patient is asymptomatic at rest. However does note that he is quite lightheaded when he is up to move around is been so for the past few days. Had some nausea and chills denies fever. Said a dry cough for couple days. He was found to have a bandemia as well as acute kidney injury. An elevated bilirubin. In August he was evaluated for gallstones. It was thought that he had a gallstone that may have passed at that time he had an ultrasound MRCP which did not catch any stone at that time. He is found to have fatty liver on imaging. But he is noted to have a bilirubin of 2.3 mostly conjugated at this time. Denies any right upper quadrant abdominal pain currently. 02/27 Patient's blood pressure trended down overnight had to be put on vasopressors. Febrile overnight. States he feels about the same as yesterday, Tired. Has a dry cough no other complaints. 02/28 Patient seen examined, no acute issues, patient has no pain today, but has low grade fevers, notes cough x [address] reviewed yesterday, has astrid peripheral infiltrates ? atypical infection? inflammatory disease? embolic episode? echo neg for vegetations, blood cultures neg so far Pt tachycardic at baseline with significant worsening with activity, labs show improved wbc count, but still has 17 bands, creat back to normal, BP stable, not on pressors x 24 hrs, procalcitonin is trending down. good urine output. USG axilla neg for loculations Get Chest ct r/o PE, given persistent tachycardia in light of clinically improving infection , will also help look at the progress of pulmonary lesions a gain repeat blood cultures, sputum cx, urine legionella, strep, mycoplasma start on IV levofloxacin to cover for atypical organisms, and possible resp pathogens. Wound culture was growing staph, pt on anceph and vanco for cellulitis. Pertinent ROS: Denies headache, dizziness Denies chest pain, palpitations cough present, no shortness of breath Denies abdominal pain, nausea or vomiting. - Constitutional Vitals: Vital Signs Temp Pulse Resp BP Pulse Ox 100.4 F H 114 H 26 H 110/75 95 02/28/19 07:31 02/28/19 06:00 02/28/19 07:31 02/28/19 07:31 02/28/19 07:31 Period Temp Pulse Resp BP Sys/Calderón Pulse Ox Last 24 Hr 98.9 F-100.5 F 95-162 10-33 85-140/41-112 90-100 Intake and Output 02/27/19 02/28/19 02/28/19 21:59 05:59 13:59 Intake Total 2996 2459 1400 Output Total 2675 1350 725 Balance 321 1109 675 Weight 363 lb 12.8 oz Intake & Output: Intake & Output 02/27/19 02/28/19 02/28/19 21:59 05:59 13:59 Intake Total 2996 2459 1400 Output Total 2675 1350 725 Balance 321 1109 675 Weight 363 lb 12.8 oz Intake: IV 2456 1659 1000 Sodium Chloride 0.9% 1,000 ml @ 2000 1000 1000 200 mls/hr IV .Q5H WIN Rx#: [id number] Sodium Chloride 0.9% 250 ml @ 250 59 20 mls/hr IV .[id number] WIN Rx#: [id number] Merrem 1 gm In Sodium Chloride 50 0.9% 50 ml @ 100 mls/hr IV Q8H WIN Rx#:[id number] Levophed 16 mg In Sodium 100 Chloride 0.9% 234 ml @ 10 MCG/ MIN 9.38 mls/hr IV Q24H WIN Rx# :[id number] Zosyn 3.375 gm In Dextrose 5% 50 in Water 50 ml @ 100 mls/hr IV Q6H WIN Rx#:[id number] Vancomycin 1,500 mg In Sodium 106 500 Chloride 0.9% 500 ml @ 333.3 mls/hr IV Q12H WIN Rx#: [id number] Oral 540 800 400 Output: Void Amount 2675 1350 725 Other: Urine Appearance Clear Clear Clear Urine Color Light Mercedez Light Mercedez Dark Mercedez Mcadoo Urine Odor Strong Normal Exam: Constitutional; Afebrile, cooperative, alert, not in distress. Morbidly obese Respiratory system: Air Entry equal on both sides, mild basilar crackles, left > right no wheezing, no rhonchi. CVS- Rate rhythm regular, S1,S2 heard, no gallop, no rub. Abdomen- Soft nontender abdomen, no organomegaly, no tenderness, no guarding or rigidity, [employer]- AOOx3, moving all extremities, no gross focal deficit noted. Left axilla celluti.lits stable, not as tender Medical - PN: Obj Da - Labs CBC & Chem 7: 02/28/19 03:59 02/28/19 03:59 Labs: Abnormal Lab Results 02/28/19 02/28/19 02/27/19 03:59 03:59 03:51 WBC RBC 4.19 L Hgb 11.8 L Hct 34.7 L RDW 15.2 H Plt Count MPV Gran % Lymph % (Auto) Gran # Lymph # (Auto) Seg Neutrophils % Band Neutrophils % 17 H Lymphocytes % 11 L WBC Morphology Abnorm A Toxic Granulation 2+ A Platelet Estimate PT INR Sodium Potassium Carbon Dioxide 19 L 18 L BUN 30 H Creatinine 2.5 H Glucose 112 H Calcium 8.2 L 7.9 L Phosphorus 2.0 L 2.5 L Total Bilirubin 2.7 H 3.1 H Direct Bilirubin 1.9 H 2.5 H GGT 175 H 204 H ALT 45 H Alkaline Phosphatase 167 H 185 H C-Reactive Protein Total Protein 5.5 L 5.7 L Albumin 2.5 L 2.6 L Albumin/Globulin Ratio 0.8 L 0.8 L Triglycerides 188 H 244 H Urine Urobilinogen 02/27/19 02/26/19 02/26/19 03:51 19:26 15:50 WBC 13.8 H RBC 4.44 L Hgb 12.5 L Hct 37.2 L RDW 14.8 H Plt Count MPV 10.6 H Gran % Lymph % (Auto) Gran # Lymph # (Auto) Seg Neutrophils % 83 H Band Neutrophils % Lymphocytes % 4 L WBC Morphology Toxic Granulation Platelet Estimate PT INR Sodium Potassium Carbon Dioxide BUN Creatinine Glucose Calcium Phosphorus Total Bilirubin Direct Bilirubin GGT ALT Alkaline Phosphatase C-Reactive Protein 20.1 H Total Protein Albumin Albumin/Globulin Ratio Triglycerides Urine Urobilinogen 2.0 A 02/26/19 02/26/19 02/26/19 15:50 15:50 11:24 WBC RBC Hgb 13.1 L Hct 39.5 L RDW 14.9 H Plt Count 130 L MPV 10.7 H Gran % 89.3 H Lymph % (Auto) 2.5 L Gran # 8.5 H Lymph # (Auto) 0.2 L Seg Neutrophils % Band Neutrophils % Lymphocytes % WBC Morphology Toxic Granulation Platelet Estimate PT 16.5 H INR 1.3 H Sodium Potassium 3.1 L Carbon Dioxide 19 L BUN 32 H Creatinine 2.9 H Glucose Calcium 8.0 L Phosphorus Total Bilirubin 2.3 H Direct Bilirubin 1.8 H GGT 211 H ALT 49 H Alkaline Phosphatase 188 H C-Reactive Protein Total Protein 5.5 L Albumin 2.6 L Albumin/Globulin Ratio 0.9 L Triglycerides 229 H Urine Urobilinogen 02/26/19 02/26/19 11:24 11:24 WBC RBC Hgb 13.4 L Hct 40.3 L RDW Plt Count 129 L MPV Gran % Lymph % (Auto) Gran # Lymph # (Auto) Seg Neutrophils % Band Neutrophils % 23 H Lymphocytes % WBC Morphology Toxic Granulation Platelet Estimate Decreased A PT INR Sodium 131 L Potassium 3.1 L Carbon Dioxide 20 L BUN 30 H Creatinine 2.6 H Glucose 137 H Calcium 8.1 L Phosphorus 2.0 L Total Bilirubin 2.3 H Direct Bilirubin 1.8 H GGT 220 H ALT 54 H Alkaline Phosphatase 214 H C-Reactive Protein Total Protein 5.7 L Albumin 2.7 L Albumin/Globulin Ratio 0.9 L Triglycerides 228 H Urine Urobilinogen Meds: Medications Acetaminophen (Tylenol) 1,000 mg PO TID [facility] Last Admin: 02/27/19 20:09 Dose: 1,000 mg Documented by: Cefazolin Sodium (Ancef) 2 gm IV Q8H [facility]; Protocol Last Admin: 02/28/19 05:51 Dose: 2 gm Documented by: Docusate Sodium (Colace) 100 mg PO BID [facility] Last Admin: 02/27/19 20:41 Dose: Not Given Documented by: Enoxaparin Sodium (Lovenox) 40 mg SQ BID [facility] Last Admin: 02/27/19 20:08 Dose: 40 mg Documented by: Fentanyl (Sublimaze) 25 mcg IV Q3HP PRN PRN Reason: PAIN LEVEL > 6 Last Admin: 02/27/19 23:30 Dose: 25 mcg Documented by: Vancomycin HCl 1,500 mg/ (Sodium Chloride) 500 mls @ 333.3 mls/hr IV Q12H [facility] Last Infusion: 02/28/19 00:07 Dose: Infused Documented by: Acetaminophen (Ofirmev) 650 mg in 65 mls @ 130 mls/hr IV Q4-6HP PRN PRN Reason: PAIN/FEVER > 101 Last Infusion: 02/27/19 09:20 Dose: Infused Documented by: Sodium Chloride (Sodium Chloride 0.9%) 250 mls @ 20 mls/hr IV .[id number] [facility] Last Admin: 02/28/19 02:38 Dose: Not Given Documented by: Norepinephrine Bitartrate 16 (mg/ Sodium Chloride) 250 mls @ 9.38 mls/hr IV Q24HP PRN; Protocol PRN Reason: Hypotension Levofloxacin (Levaquin) 750 mg in 150 mls @ 100 mls/hr IV Q24H [facility] Last Admin: 02/28/19 08:30 Dose: 100 mls/hr Documented by: Lactated Ringer's (Lactated Ringers) 1,000 mls @ 75 mls/hr IV .[id number] [facility] Last Admin: 02/28/19 08:30 Dose: 75 mls/hr Documented by: Oxycodone HCl (Roxicodone) 5 mg PO Q4HP PRN PRN Reason: PAIN LEVEL 3-6 Last Admin: 02/28/19 03:48 Dose: 5 mg Documented by: [facility] Last Admin: 02/28/19 07:38 Dose: 40 mg Documented by: Promethazine HCl (Phenergan) 12.5 mg IV Q6HP PRN PRN Reason: Nausea And Vomiting Last Admin: 02/28/19 02:11 Dose: 12.5 mg Documented by: Sodium Chloride (Saline Flush) 10 ml IV Q8 [facility] Last Admin: 02/28/19 05:52 Dose: Not Given Documented by: Trazodone HCl (Desyrel) 50 - 100 mg PO HS PRN PRN Reason: Insomnia Last Admin: 02/27/19 22:30 Dose: 50 mg Documented by: Vancomycin HCl (Vancomycin Per Pharmacy) 1 order IV UD [facility]; Protocol Medical - PN: A/P - Time Spent With Patient Total time spent is greater than 50% in coordination of care (as documented) at patient's floor/unit and/or counseling patient: - Narrative A/P Narrative: A: *Left axillary skin abscess with surrounding cellulitis: -Original ED cultures with MSSA -USG neg, CT neg for abscess -Clinically Stable -on vancomycin and anceph for now. *Septic Shock: 2/2 above -febrile, lactate ok, bandemia present -off pressors, good Urine output, *LYLY, concern for ATN: 2/2 above -good UOP -Creat back to baseline, 1.2 today *Hyponatremia/hypokalemia: resolved *Hyperbilirubinemia, conjugated /elevated ALP: -GB unremarkable, a few polyps but no stones -cholestasis suspect related to Sepsis*Fatty liver: -stable and trending down *Obesity Morbid BMI 49 *HTN: On losartan 50 mill grams daily, held *GERD *Atypical Pneumonia -Repeat Blood cultures -on vanco and levofloxacin for now -repeat sputum cx *Tachycardia -Echo neg -check tsh -get CTA for evaluation of pulmonary embolus. -ppx: Lovenox/home PPI
[2019-02-28] MEDS ORDERED: IOPAMIDOL 100 ML BOTTLE IV ONE ×2 (09:58)
[2019-02-28] MEDS: ENOXAPARIN 40 MG/0.4 ML SYRINGE SQ SCH ×2 (10:23→20:09)
[2019-02-28] MEDS: ACETAMINOPHEN 500 MG TABLET PO SCH ×3 (10:23→20:09)
--- NOTE | 2019-02-28 10:23 | Cat Scan Report ---
CLINICAL INFORMATION: Shortness of breath, recently drained abscess in left axilla and nodular infiltrates in both lungs COMPARISON: Chest CT on 02/27/19 TECHNIQUE: Axial images obtained through the chest. intravenous contrast administration was administered, and scanning was performed during pulmonary arterial phase. Sagittally and coronally reformatted images were obtained. MIP reformatted images. The radiation exposure was limited using dose reduction technology. FINDINGS: There are multiple ill-defined nodular infiltrates throughout both lungs. Most of them are located towards the periphery of the lung. They have increased in both size and number since yesterday. There is no central cavitation. The largest is pleural-based and located medially in the superior segment of the right lower lobe. It measures 1.8 x 3.0 cm. It measured 1.5 x 2.2 cm in yesterday's study. Right diaphragm is mild to moderately elevated. There is respiration motion artifact, especially in the lung bases. The central and lobar pulmonary arteries are normal without evidence of embolus. Due to motion artifact the peripheral branches of the pulmonary arteries, in the lung bases are more difficult to evaluate but grossly normal. There is no pleural effusion. No abnormally enlarged lymph nodes are present in the mediastinum or lopez. The heart size is towards upper limits of normal. No calcified plaque is seen in the coronary arteries nor the aorta. Beneath the skin in the lateral aspect of left axilla there is a lobulated nodular density with indistinct margins. Measures approximately 2 x 2.3 x 5.2 cm. Along the lateral border of this there is a small bubble of air following the recent drainage procedure. The subcutaneous structure was outside the field of view on yesterday's chest CT. The reactive lymph nodes in left axilla have not enlarged. IMPRESSION: No evidence of pulmonary emboli. However, due to motion artifact, the peripheral branches adjacent to the diaphragm cannot be adequately evaluated. Increasing number and size of the multiple nodular infiltrates throughout both lungs. The rapid change would suggest this is most likely due to an infection. Phlegmon versus residual collapsed abscess in the left axilla. There is surrounding cellulitis. Interpreted and Authenticated by: Venancio Decker 02/28/19
[2019-02-28] MEDS: DOCUSATE SODIUM 100 MG CAPSULE PO SCH ×3 (10:26→20:15)
[2019-02-28] MEDS: VANCOMYCIN 1,500 MG in 0.9 % SODIUM CHLORIDE 500 ML IV SCH ×2 (10:36→17:47)
--- NOTE | 2019-02-28 12:19 | General Surgery Progress Note ---
Subjective Patient reports: feels better, pain is less, fever, other (increasing cough) Narrative: Note initiated : 02/28/19 at 12:16 pm Service Date, if different from initiated Date: [] Patient: Elder Smith 28 y/o M admitted on 02/26/19 for Cellulitis. Chief Complaint: [patient states that he feels better. He has less discomfort in his left upper extremity and axilla. The tenderness of the tissues of the ax illa, upper medial arm and anterior chest on the left side, significantly improved. He has developed a cough which is new from yesterday. A follow-up CTA shows increasing nodular infiltrates in both lungs compatible with developing pneumonitis. Antibiotics have been adjusted accordingly. White b lood count 10.5, hemoglobin 11.8, phosphorus 2, bilirubin and LFTs are trending downward. BUN is 12 and creatinine 1.2.] Objective Temp Pulse Resp BP Pulse Ox 100.5 F H 102 H 25 H 109/53 93 02/28/19 12:01 02/28/19 12:01 02/28/19 12:01 02/28/19 12:01 02/28/19 12:01 - Additional Data Intake & Output - Last 24 hours: Intake & Output 02/26/19 02/27/19 02/28/19 03/01/19 05:59 05:59 05:59 05:59 Intake Total 6891 7944 2250 Output Total 1250 8000 725 Balance 5641 -56 1525 Weight 353 lb 3.2 oz 363 lb 12.8 oz - General physical appearance well developed, well nourished, no distress - Eyes PERRL, normal ocular movement - ENT normal pinna, normal nares, normal mucosa, no hearing loss, no congestion - Neck no masses, no bruits, trachea midline, no lymphadenopathy, no venous distension - Respiratory other (scattered rhonchi in both lung mena with scattered coarse rales but no wheezes noted) - Cardiovascular Cardiovascular exam: Present: normal rate and rhythm, +S1, +S2, tachycardia. Absent: JVD - Abdomen non tender, bowel sounds (present), surgical scars (none), masses (none) - Rectum normal sphincter tone, no hemorrhoids, no tenderness, no masses, no bleeding - Integumentary no rash, no growths, no abnormal pigmentation - Neurologic normal coordination, normal sensation - Musculoskeletal normal gait, normal posture - Psychiatric oriented to time, oriented to person, oriented to place, speech is normal, memory intact - Labs 02/28/19 03:59 02/28/19 03:59 Diabetes panel 02/28/19 Range/Units 03:59 Sodium 139 (133-145) mmol/L Potassium 3.3 (3.3-5.1) mmol/L Chloride 108 (96-108) mmol/L Carbon Dioxide 19 L (22-30) mmol/L BUN 14 (6-20) mg/dl Creatinine 1.2 (0.7-1.2) mg/dl Glucose 112 H (70-105) mg/dL Calcium 8.2 L (8.6-10.4) mg/dl AST 16 (0-37) U/l ALT 33 (0-40) U/l Alkaline Phosphatase 167 H (39-117) U/L Total Protein 5.5 L (5.9-8.4) gm/dL Albumin 2.5 L (3.2-5.2) gm/dL Triglycerides 188 H (<150) mg/dl Thyroid panel 02/28/19 Range/Units 08:25 TSH 2.55 (0.27-5.01) uIU/ml Calcium panel 02/28/19 Range/Units 03:59 Calcium 8.2 L (8.6-10.4) mg/dl Phosphorus 2.0 L (2.7-4.5) mg/dL Albumin 2.5 L (3.2-5.2) gm/dL Pituitary panel 02/28/19 02/28/19 Range/Units 03:59 08:25 Sodium 139 (133-145) mmol/L Potassium 3.3 (3.3-5.1) mmol/L Chloride 108 (96-108) mmol/L Carbon Dioxide 19 L (22-30) mmol/L BUN 14 (6-20) mg/dl Creatinine 1.2 (0.7-1.2) mg/dl Glucose 112 H (70-105) mg/dL Calcium 8.2 L (8.6-10.4) mg/dl TSH 2.55 (0.27-5.01) uIU/ml Adrenal panel 02/28/19 Range/Units 03:59 Sodium 139 (133-145) mmol/L Potassium 3.3 (3.3-5.1) mmol/L Chloride 108 (96-108) mmol/L Carbon Dioxide 19 L (22-30) mmol/L BUN 14 (6-20) mg/dl Creatinine 1.2 (0.7-1.2) mg/dl Glucose 112 H (70-105) mg/dL Calcium 8.2 L (8.6-10.4) mg/dl Total Bilirubin 2.7 H (0.0-1.0) mg/dL AST 16 (0-37) U/l ALT 33 (0-40) U/l Alkaline Phosphatase 167 H (39-117) U/L Total Protein 5.5 L (5.9-8.4) gm/dL Albumin 2.5 L (3.2-5.2) gm/dL Assessment and Plan (1) Acute sepsis Status: Acute Assessment and plan: Clinically improved with each passing day; white blood count 10.5 Current Visit: Yes (2) Acute renal injury due to sepsis Status: Acute Assessment and plan: Acute kidney injury has resolved. BUN and creatinine are normal Current Visit: Yes (3) Abscess of axilla, left Status: Chronic Assessment and plan: Significant reduction in induration and erythema of the axilla, anterior left chest medial upper arm. No drainage noted from the abscess cavity Current Visit: No - Time Spent With Patient Total time spent is greater than 50% in coordination of care (as documented) at patient's floor/unit and/or counseling patient:
[2019-02-28] MEDS ORDERED: ALPRAZolam 0.5 MG TABLET PO PRN (19:15)
[2019-02-28] MEDS: traZODone HCL 50 MG TABLET PO PRN (23:53)
[2019-03-01] MEDS: LACTATED RINGERS 1,000 ML IV SCH ×2 (00:47→10:10)
[2019-03-01] MEDS: VANCOMYCIN 1,500 MG in 0.9 % SODIUM CHLORIDE 500 ML IV SCH ×3 (02:03→17:33)
[2019-03-01 04:59] LABS: Basophils # (Auto) 0 K/mcL (0.0-0.3); Basophils % (Auto) 0.2 % (0.0-2.0); Eosinophils # (Auto) 0.5 K/mcL (0.0-0.7); Eosinophils % (Auto) 5.4 % (0.0-7.0); Granulocytes % (Auto) 76.5 % (38.0-78.0); Hematocrit 34.2 % (41.0-55.0); Hemoglobin 11.6 g/dL (13.5-16.5); Lymphocytes # (Auto) 0.7 K/mcL (1.5-4.8); Lymphocytes % (Auto) 7.9 % (15.5-49.0); Mean Cell Volume 83.3 fL (80.0-100.0); Mean Corpuscular HGB Conc 33.8 g/dL (31.0-36.0); Mean Platelet Volume 9.4 fL (7.4-10.4); Monocytes # (Auto) 0.9 K/mcL (0.1-0.9); Platelet Count 140 K/mcL (140-440); Red Cell Distribution Width 15.7 % (11.5-14.5); WBC 9.3 K/mcL (4.5-11.0)
[2019-03-01] MEDS: ceFAZolin 1 GM VIAL IV SCH ×3 (05:19→21:30)
[2019-03-01] MEDS: 0.9 % SODIUM CHLORIDE 10 ML SYRINGE IV SCH ×3 (05:19→21:30)
[2019-03-01] MEDS: 0.9 % SODIUM CHLORIDE 250 ML IV SCH (05:20)
[2019-03-01 05:22] LABS: ALT/SGPT 26 U/l (0-40); AST/SGOT 15 U/l (0-37); Albumin 2.5 gm/dL (3.2-5.2); Albumin/Globulin Ratio 0.8 (1.0-2.3); Alkaline Phosphatase 164 U/L (39-117); Bilirubin,Direct 1.1 mg/dL (0.0-0.3); Bilirubin,Total 1.6 mg/dL (0.0-1.0); Blood Urea Nitrogen 10 mg/dl (6-20); Calcium 8.2 mg/dl (8.6-10.4); Carbon Dioxide 25 mmol/L (22-30); Chloride 104 mmol/L (96-108); Glomerular Filtration Rate 101; Glucose 101 mg/dL (70-105); Lactate Dehydrogenase 132 U/L (94-250); Magnesium 1.9 mg/dL (1.6-2.5); Potassium 3.2 mmol/L (3.3-5.1); Sodium 137 mmol/L (133-145); Triglycerides 181 mg/dl (<150); Uric Acid 4.1 mg/dL (2.5-8.0)
[2019-03-01] MEDS: LEVOFLOXACIN 750 MG/150 ML BAG IV SCH (07:20)
[2019-03-01] MEDS: PANTOPRAZOLE 40 MG TABLET PO SCH ×2 (07:20→17:06)
[2019-03-01] MEDS ORDERED: POTASSIUM CHLORIDE 20 MEQ TABLET PO SCH (08:30)
[2019-03-01] MEDS ORDERED: oxyCODONE HCL 5 MG TABLET PO PRN (08:41)
[2019-03-01] MEDS ORDERED: VANCOMYCIN PER PHARMACY IV SCH (08:41)
[2019-03-01] MEDS ORDERED: ACETAMINOPHEN 650 MG/65 ML BOTTLE IV PRN (08:41)
[2019-03-01] MEDS ORDERED: fentaNYL 100 MCG/2 ML VIAL IV PRN (08:41)
[2019-03-01] MEDS ORDERED: traZODone HCL 50 MG TABLET PO PRN (08:41)
[2019-03-01] MEDS ORDERED: 0.9 % SODIUM CHLORIDE 250 ML IV SCH (08:41)
[2019-03-01] MEDS: DOCUSATE SODIUM 100 MG CAPSULE PO SCH ×3 (09:06→20:17)
[2019-03-01] MEDS: ENOXAPARIN 40 MG/0.4 ML SYRINGE SQ SCH ×2 (09:06→20:15)
[2019-03-01] MEDS: ACETAMINOPHEN 500 MG TABLET PO SCH ×3 (09:06→20:15)
[2019-03-01] MEDS: POTASSIUM CHLORIDE 20 MEQ TABLET PO SCH ×2 (09:09→17:06)
--- NOTE | 2019-03-01 09:46 | Internal Med Progress Note ---
Medical - PN: Subj Patient information: Note initiated : 03/01/19 at 9:28 am Service Date, if different from initiated Date: [] Patient: Elder Smith a 28 y/o M admitted on 02/26/19 for Cellulitis. Chief Complaint: [] Interval history: Mr. Smith is a 28 year old M Who presented to the ED on Monday with a swelling in his left axilla diagnosed with skin abscess likely extending from carbuncle. Anabiotic's and tramadol and to follow-up with Dr. Mistry for further evaluation as it is felt that he may need further I&D than what was done in the ED. Patient took Bactrim but seem to have an allergic reaction to it including hives and pruritus. He states his erythema and tenderness is also progressed over the weekend. He saw Dr. Mistry in his office today and was found to be hypotensive as well and systolics in the 70s. And was thus admitted in the hospital. Shortly after admission he was found to be hypotensive. Patient is asymptomatic at rest. However does note that he is quite lightheaded when he is up to move around is been so for the past few days. Had some nausea and chills denies fever. Said a dry cough for couple days. He was found to have a bandemia as well as acute kidney injury. An elevated bilirubin. In August he was evaluated for gallstones. It was thought that he had a gallstone that may have passed at that time he had an ultrasound MRCP which did not catch any stone at that time. He is found to have fatty liver on imaging. But he is noted to have a bilirubin of 2.3 mostly conjugated at this time. Denies any right upper quadrant abdominal pain currently. 02/27 Patient's blood pressure trended down overnight had to be put on vasopressors. Febrile overnight. States he feels about the same as yesterday, Tired. Has a dry cough no other complaints. 02/28 Patient seen examined, no acute issues, patient has no pain today, but has low grade fevers, notes cough x [address] reviewed yesterday, has astrid peripheral infiltrates ? atypical infection? inflammatory disease? embolic episode? echo neg for vegetations, blood cultures neg so far Pt tachycardic at baseline with significant worsening with activity, labs show improved wbc count, but still has 17 bands, creat back to normal, BP stable, not on pressors x 24 hrs, procalcitonin is trending down. good urine output. USG axilla neg for loculations Get Chest ct r/o PE, given persistent tachycardia in light of clinically improving infection , will also help look at the progress of pulmonary lesions a gain repeat blood cultures, sputum cx, urine legionella, strep, mycoplasma start on IV levofloxacin to cover for atypical organisms, and possible resp pathogens. Wound culture was growing staph, pt on anceph and vanco for cellulitis. 03/01 Patient seen examined, comfortable in bed, a bit drowsy after IV pain medication Denies any new complaints or concerns, labs show normal wbc count, low K, but neg microbiology, sputum cs is gpc chains and pairs, Clinically improving with levofloxacin/vanco/cefazolin. Transfer patient to medical floor status Pertinent ROS: Denies headache, dizziness Denies chest pain, palpitations Denies cough or shortness of breath Denies abdominal pain, nausea or vomiting. - Constitutional Vitals: Vital Signs Temp Pulse Resp BP Pulse Ox 99.2 F H 101 H 25 H 127/80 92 03/01/19 08:18 03/01/19 08:18 03/01/19 08:18 03/01/19 08:18 03/01/19 08:18 Period Temp Pulse Resp BP Sys/Calderón Pulse Ox Last 24 Hr 97.0 F-101.1 F 99-114 19-31 104-157/39-108 91-99 Intake and Output 02/28/19 03/01/19 03/01/19 21:59 05:59 13:59 Intake Total 2940 1850 700 Output Total 1900 1750 900 Balance 1040 100 -200 Weight 374 lb 12.8 oz Intake & Output: Intake & Output 02/28/19 03/01/19 03/01/19 21:59 05:59 13:59 Intake Total 2940 1850 700 Output Total 1900 1750 900 Balance 1040 100 -200 Weight 374 lb 12.8 oz Intake: IV 1500 500 Lactated Ringers 1,000 ml @ 75 1000 mls/hr IV .[id number] [facility] Rx#: [id number] Vancomycin 1,500 mg In Sodium 500 500 Chloride 0.9% 500 ml @ 333.3 mls/hr IV Q8H [facility] Rx#:[id number] Oral 1440 1350 700 Output: Void Amount 1900 1750 900 Other: Urine Appearance Clear Clear Urine Color Straw Light [place] Stool Size Small Stool Color Brown Stool Consistency Soft Formed # Bowel Movements 1 Exam: Constitutional; Afebrile, cooperative, drowsy, not in distress. Respiratory system: Air Entry equal on both sides, No crackles or wheezing, no rhonchi. CVS- Rate rhythm regular, S1,S2 heard, no gallop, no rub. Abdomen- Soft nontender abdomen, no organomegaly, no tenderness, no guarding or rigidity, [employer]- AOOx3, moving all extremities, no gross focal deficit noted. Medical - PN: Obj Da - Labs CBC & Chem 7: 03/01/19 04:15 03/01/19 04:15 Labs: Abnormal Lab Results 03/01/19 03/01/19 02/28/19 04:15 04:15 03:59 WBC RBC 4.10 L Hgb 11.6 L Hct 34.2 L RDW 15.7 H Plt Count MPV Gran % Lymph % (Auto) 7.9 L Gran # Lymph # (Auto) 0.7 L Seg Neutrophils % Band Neutrophils % Lymphocytes % WBC Morphology Toxic Granulation Platelet Estimate PT INR Sodium Potassium 3.2 L Carbon Dioxide 19 L BUN Creatinine Glucose 112 H Calcium 8.2 L 8.2 L Phosphorus 2.0 L Total Bilirubin 1.6 H 2.7 H Direct Bilirubin 1.1 H 1.9 H GGT 192 H 175 H ALT Alkaline Phosphatase 164 H 167 H C-Reactive Protein Total Protein 5.5 L 5.5 L Albumin 2.5 L 2.5 L Albumin/Globulin Ratio 0.8 L 0.8 L Triglycerides 181 H 188 H Urine Urobilinogen 02/28/19 02/27/19 02/27/19 03:59 03:51 03:51 WBC 13.8 H RBC 4.19 L 4.44 L Hgb 11.8 L 12.5 L Hct 34.7 L 37.2 L RDW 15.2 H 14.8 H Plt Count MPV 10.6 H Gran % Lymph % (Auto) Gran # Lymph # (Auto) Seg Neutrophils % 83 H Band Neutrophils % 17 H Lymphocytes % 11 L 4 L WBC Morphology Abnorm A Toxic Granulation 2+ A Platelet Estimate PT INR Sodium Potassium Carbon Dioxide 18 L BUN 30 H Creatinine 2.5 H Glucose Calcium 7.9 L Phosphorus 2.5 L Total Bilirubin 3.1 H Direct Bilirubin 2.5 H GGT 204 H ALT 45 H Alkaline Phosphatase 185 H C-Reactive Protein Total Protein 5.7 L Albumin 2.6 L Albumin/Globulin Ratio 0.8 L Triglycerides 244 H Urine Urobilinogen 02/26/19 02/26/19 02/26/19 19:26 15:50 15:50 WBC RBC Hgb 13.1 L Hct 39.5 L RDW 14.9 H Plt Count 130 L MPV 10.7 H Gran % 89.3 H Lymph % (Auto) 2.5 L Gran # 8.5 H Lymph # (Auto) 0.2 L Seg Neutrophils % Band Neutrophils % Lymphocytes % WBC Morphology Toxic Granulation Platelet Estimate PT INR Sodium Potassium Carbon Dioxide BUN Creatinine Glucose Calcium Phosphorus Total Bilirubin Direct Bilirubin GGT ALT Alkaline Phosphatase C-Reactive Protein 20.1 H Total Protein Albumin Albumin/Globulin Ratio Triglycerides Urine Urobilinogen 2.0 A 02/26/19 02/26/19 02/26/19 15:50 11:24 11:24 WBC RBC Hgb Hct RDW Plt Count MPV Gran % Lymph % (Auto) Gran # Lymph # (Auto) Seg Neutrophils % Band Neutrophils % Lymphocytes % WBC Morphology Toxic Granulation Platelet Estimate PT 16.5 H INR 1.3 H Sodium 131 L Potassium 3.1 L 3.1 L Carbon Dioxide 19 L 20 L BUN 32 H 30 H Creatinine 2.9 H 2.6 H Glucose 137 H Calcium 8.0 L 8.1 L Phosphorus 2.0 L Total Bilirubin 2.3 H 2.3 H Direct Bilirubin 1.8 H 1.8 H GGT 211 H 220 H ALT 49 H 54 H Alkaline Phosphatase 188 H 214 H C-Reactive Protein Total Protein 5.5 L 5.7 L Albumin 2.6 L 2.7 L Albumin/Globulin Ratio 0.9 L 0.9 L Triglycerides 229 H 228 H Urine Urobilinogen 02/26/19 11:24 WBC RBC Hgb 13.4 L Hct 40.3 L RDW Plt Count 129 L MPV Gran % Lymph % (Auto) Gran # Lymph # (Auto) Seg Neutrophils % Band Neutrophils % 23 H Lymphocytes % WBC Morphology Toxic Granulation Platelet Estimate Decreased A PT INR Sodium Potassium Carbon Dioxide BUN Creatinine Glucose Calcium Phosphorus Total Bilirubin Direct Bilirubin GGT ALT Alkaline Phosphatase C-Reactive Protein Total Protein Albumin Albumin/Globulin Ratio Triglycerides Urine Urobilinogen Meds: Medications Acetaminophen (Tylenol) 1,000 mg PO TID [facility] Last Admin: 03/01/19 09:06 Dose: 1,000 mg Documented by: Alprazolam (Xanax) 0.5 mg PO TIDP PRN PRN Reason: Anxiety Cefazolin Sodium (Ancef) 2 gm IV Q8H [facility]; Protocol Docusate Sodium (Colace) 100 mg PO BID [facility] Last Admin: 03/01/19 09:06 Dose: 100 mg Documented by: Enoxaparin Sodium (Lovenox) 40 mg SQ BID [facility] Last Admin: 03/01/19 09:06 Dose: 40 mg Documented by: Lactated Ringer's (Lactated Ringers) 1,000 mls @ 75 mls/hr IV .[id number] [facility] Levofloxacin (Levaquin) 750 mg in 150 mls @ 100 mls/hr IV Q24H [facility] Vancomycin HCl 1,500 mg/ (Sodium Chloride) 500 mls @ 333.3 mls/hr IV Q8H [facility] Oxycodone HCl (Roxicodone) 5 mg PO Q4HP PRN PRN Reason: PAIN LEVEL 3-6 Pantoprazole Sodium (Protonix) 40 mg PO BIDAC [facility] Potassium Chloride (Kdur) 20 meq PO BIDCC [facility] Stop: 03/02/19 17:31 Last Admin: 03/01/19 09:09 Dose: 20 meq Documented by: Promethazine HCl (Phenergan) 12.5 mg IV Q6HP PRN PRN Reason: Nausea And Vomiting Sodium Chloride (Saline Flush) 10 ml IV Q8 [facility] Trazodone HCl (Desyrel) 50 - 100 mg PO HS PRN PRN Reason: Insomnia Vancomycin HCl (Vancomycin Per Pharmacy) 1 order IV UD [facility]; Protocol Medical - PN: A/P - Time Spent With Patient Total time spent is greater than 50% in coordination of care (as documented) at patient's floor/unit and/or counseling patient: - Narrative A/P Narrative: A: *Left axillary skin abscess with surrounding cellulitis: -Original ED cultures with MSSA -USG neg, CT neg for abscess -Clinically improving -on vancomycin and anceph for now. *Septic Shock: 2/2 above, resolved -febrile, lactate ok, bandemia present -off pressors, good Urine output, *LYLY, concern for ATN: 2/2 above -good UOP -Creat back to baseline, 1. 0 today *Hyponatremia/hypokalemia: resolved *Hyperbilirubinemia, conjugated /elevated ALP -GB unremarkable, a few polyps but no stones -cholestasis suspect related to Sepsis*Fatty liver: - LFT trending down *Obesity Morbid BMI 49 *HTN: On losartan 50 mill grams daily, held *GERD *Atypical Pneumonia -Repeat Blood cultures -on vanco and levofloxacin for now -repeat sputum cx shows gpc chains and pairs *Tachycardia, due to acute infection, -Echo neg -tsh neg -CTA neg for PE -improving -ppx: Lovenox/home PPI Transfer to medical floor status
--- NOTE | 2019-03-01 14:26 | General Surgery Progress Note ---
Subjective Patient reports: feels better, pain is less, afebrile Narrative: Note initiated : 03/01/19 at 2:26 pm Service Date, if different from initiated Date: [] Patient: Elder Smith 28 y/o M admitted on 02/26/19 for Cellulitis. Chief Complaint: [Patient states that he feels better. He states that he is stronger, though he does have some dyspnea with ambulation. He denies any worsening cough. He denies shortness of breath at rest. His left axillary pain is significantly improved. White blood count is 9.3.] Objective Temp Pulse Resp BP Pulse Ox 97.8 F 95 H 20 132/84 95 03/01/19 12:07 03/01/19 12:07 03/01/19 12:07 03/01/19 12:07 03/01/19 12:07 - Additional Data Intake & Output - Last 24 hours: Intake & Output 02/27/19 02/28/19 03/01/19 03/02/19 05:59 05:59 05:59 05:59 Intake Total 6891 7944 8217 1550 Output Total 1250 8000 5050 900 Balance 5641 -56 3167 650 Weight 353 lb 3.2 oz 363 lb 12.8 oz 374 lb 12.8 oz 374 lb 12.8 oz - General physical appearance well developed, well nourished, no distress - Eyes PERRL, normal ocular movement - ENT normal pinna, normal nares, normal mucosa, no hearing loss, no congestion - Neck no masses, no bruits, trachea midline, no lymphadenopathy, no venous distension - Respiratory normal expansion, normal respiratory effort, clear to auscultation, other (good breath sounds bilaterally without rales, rhonchi or wheezes) - Cardiovascular Cardiovascular exam: Present: normal rate and rhythm, RRR, +S1, +S2. Absent: JVD, tachycardia - Abdomen soft, non tender, bowel sounds (good. Active bowel sounds; no tenderness or guarding) - Integumentary other (cellulitis of the chest wall and left upper extremity is significantly improved) - Neurologic normal coordination, normal sensation - Musculoskeletal normal gait, normal posture - Psychiatric oriented to time, oriented to person, oriented to place, speech is normal, memory intact - Labs 03/03/19 04:38 03/03/19 04:38 Diabetes panel 03/01/19 Range/Units 04:15 Sodium 137 (133-145) mmol/L Potassium 3.2 L (3.3-5.1) mmol/L Chloride 104 (96-108) mmol/L Carbon Dioxide 25 (22-30) mmol/L BUN 10 (6-20) mg/dl Creatinine 1.0 (0.7-1.2) mg/dl Glucose 101 (70-105) mg/dL Calcium 8.2 L (8.6-10.4) mg/dl AST 15 (0-37) U/l ALT 26 (0-40) U/l Alkaline Phosphatase 164 H (39-117) U/L Total Protein 5.5 L (5.9-8.4) gm/dL Albumin 2.5 L (3.2-5.2) gm/dL Triglycerides 181 H (<150) mg/dl Calcium panel 03/01/19 Range/Units 04:15 Calcium 8.2 L (8.6-10.4) mg/dl Phosphorus 3.0 (2.7-4.5) mg/dL Albumin 2.5 L (3.2-5.2) gm/dL Pituitary panel 03/01/19 Range/Units 04:15 Sodium 137 (133-145) mmol/L Potassium 3.2 L (3.3-5.1) mmol/L Chloride 104 (96-108) mmol/L Carbon Dioxide 25 (22-30) mmol/L BUN 10 (6-20) mg/dl Creatinine 1.0 (0.7-1.2) mg/dl Glucose 101 (70-105) mg/dL Calcium 8.2 L (8.6-10.4) mg/dl Adrenal panel 03/01/19 Range/Units 04:15 Sodium 137 (133-145) mmol/L Potassium 3.2 L (3.3-5.1) mmol/L Chloride 104 (96-108) mmol/L Carbon Dioxide 25 (22-30) mmol/L BUN 10 (6-20) mg/dl Creatinine 1.0 (0.7-1.2) mg/dl Glucose 101 (70-105) mg/dL Calcium 8.2 L (8.6-10.4) mg/dl Total Bilirubin 1.6 H (0.0-1.0) mg/dL AST 15 (0-37) U/l ALT 26 (0-40) U/l Alkaline Phosphatase 164 H (39-117) U/L Total Protein 5.5 L (5.9-8.4) gm/dL Albumin 2.5 L (3.2-5.2) gm/dL Assessment and Plan (1) Abscess of axilla, left Status: Chronic Assessment and plan: Significant reduction in induration and erythema of the axilla, anterior left chest medial upper arm. No drainage noted from the abscess cavity (2) Acute pneumonitis Status: Acute Assessment and plan: Patient continues to clinically improve - Time Spent With Patient Total time spent is greater than 50% in coordination of care (as documented) at patient's floor/unit and/or counseling patient:
[2019-03-01] MEDS: PROMETHAZINE 25 MG/ML VIAL IV PRN ×2 (15:08→21:29)
[2019-03-01] MEDS: ALPRAZolam 0.5 MG TABLET PO PRN (21:30)
[2019-03-02] MEDS: VANCOMYCIN 1,500 MG in 0.9 % SODIUM CHLORIDE 500 ML IV SCH (01:58)
[2019-03-02] MEDS: LACTATED RINGERS 1,000 ML IV SCH ×2 (02:01→12:00)
[2019-03-02 05:20] LABS: Basophils # (Auto) 0 K/mcL (0.0-0.3); Basophils % (Auto) 0.1 % (0.0-2.0); Eosinophils # (Auto) 0.5 K/mcL (0.0-0.7); Eosinophils % (Auto) 3.9 % (0.0-7.0); Granulocytes % (Auto) 78.2 % (38.0-78.0); Hemoglobin 12.1 g/dL (13.5-16.5); Lymphocytes # (Auto) 1.2 K/mcL (1.5-4.8); Lymphocytes % (Auto) 9.6 % (15.5-49.0); Mean Cell Volume 82.6 fL (80.0-100.0); Mean Corpuscular HGB Conc 33.6 g/dL (31.0-36.0); Mean Platelet Volume 9.1 fL (7.4-10.4); Monocytes % (Auto) 8.2 % (1.0-12.0); Platelet Count 174 K/mcL (140-440); RBC 4.36 M/mcL (4.50-5.90); Red Cell Distribution Width 15.2 % (11.5-14.5); WBC 12.3 K/mcL (4.5-11.0)
[2019-03-02] MEDS: ceFAZolin 1 GM VIAL IV SCH ×3 (05:23→21:25)
[2019-03-02] MEDS: 0.9 % SODIUM CHLORIDE 10 ML SYRINGE IV SCH ×3 (05:25→21:26)
[2019-03-02 05:50] LABS: ALT/SGPT 24 U/l (0-40); AST/SGOT 20 U/l (0-37); Albumin 2.8 gm/dL (3.2-5.2); Albumin/Globulin Ratio 0.9 (1.0-2.3); Alkaline Phosphatase 187 U/L (39-117); Bilirubin,Direct 0.7 mg/dL (0.0-0.3); Bilirubin,Total 1.5 mg/dL (0.0-1.0); Blood Urea Nitrogen 7 mg/dl (6-20); Calcium 8.4 mg/dl (8.6-10.4); Carbon Dioxide 26 mmol/L (22-30); Chloride 100 mmol/L (96-108); Globulin 3.2 gm/dL (2.2-3.7); Glomerular Filtration Rate 120; Glucose 103 mg/dL (70-105); Lactate Dehydrogenase 163 U/L (94-250); Magnesium 1.7 mg/dL (1.6-2.5); Phosphorous 2.6 mg/dL (2.7-4.5); Potassium 3.3 mmol/L (3.3-5.1); Sodium 138 mmol/L (133-145); Triglycerides 183 mg/dl (<150)
[2019-03-02] MEDS: ACETAMINOPHEN 500 MG TABLET PO SCH ×4 (06:46→21:25)
[2019-03-02] MEDS ORDERED: LEVOFLOXACIN 750 MG/150 ML BAG IV SCH ×2 (08:00)
[2019-03-02] MEDS: POTASSIUM CHLORIDE 20 MEQ TABLET PO SCH ×2 (08:07→17:21)
[2019-03-02] MEDS: PANTOPRAZOLE 40 MG TABLET PO SCH ×2 (08:07→17:21)
[2019-03-02] MEDS: ENOXAPARIN 40 MG/0.4 ML SYRINGE SQ SCH ×2 (08:07→21:26)
[2019-03-02] MEDS: DOCUSATE SODIUM 100 MG CAPSULE PO SCH ×2 (08:07→21:26)
--- NOTE | 2019-03-02 09:00 | XRay Report ---
HISTORY: Follow-up pneumonia FINDINGS: There are vague multifocal nodular infiltrates in both lungs with the greatest involvement in the left upper lobe. There is no lobar consolidation or pleural effusion. The heart size is normal. There may have been mild improvement on the right side since the chest CT done on 02/28/19. IMPRESSION: Bilateral pneumonia with mild improvement in the right lung Interpreted and Authenticated by: Venancio Decker 03/02/19
[2019-03-02] MEDS: LEVOFLOXACIN 750 MG/150 ML BAG IV SCH (09:41)
--- NOTE | 2019-03-02 10:29 | Internal Med Progress Note ---
Medical - PN: Subj Patient information: Note initiated : 03/02/19 at 10:26 am Service Date, if different from initiated Date: [] Patient: Elder Smith a 28 y/o M admitted on 02/26/19 for Cellulitis. Chief Complaint: [] Interval history: Mr. Smith is a 28 year old M Who presented to the ED on Monday with a swelling in his left axilla diagnosed with skin abscess likely extending from carbuncle. Anabiotic's and tramadol and to follow-up with Dr. Mistry for further evaluation as it is felt that he may need further I&D than what was done in the ED. Patient took Bactrim but seem to have an allergic reaction to it including hives and pruritus. He states his erythema and tenderness is also progressed over the weekend. He saw Dr. Mistry in his office today and was found to be hypotensive as well and systolics in the 70s. And was thus admitted in the hospital. Shortly after admission he was found to be hypotensive. Patient is asymptomatic at rest. However does note that he is quite lightheaded when he is up to move around is been so for the past few days. Had some nausea and chills denies fever. Said a dry cough for couple days. He was found to have a bandemia as well as acute kidney injury. An elevated bilirubin. In August he was evaluated for gallstones. It was thought that he had a gallstone that may have passed at that time he had an ultrasound MRCP which did not catch any stone at that time. He is found to have fatty liver on imaging. But he is noted to have a bilirubin of 2.3 mostly conjugated at this time. Denies any right upper quadrant abdominal pain currently. 02/27 Patient's blood pressure trended down overnight had to be put on vasopressors. Febrile overnight. States he feels about the same as yesterday, Tired. Has a dry cough no other complaints. 02/28 Patient seen examined, no acute issues, patient has no pain today, but has low grade fevers, notes cough x [address] reviewed yesterday, has astrid peripheral infiltrates ? atypical infection? inflammatory disease? embolic episode? echo neg for vegetations, blood cultures neg so far Pt tachycardic at baseline with significant worsening with activity, labs show improved wbc count, but still has 17 bands, creat back to normal, BP stable, not on pressors x 24 hrs, procalcitonin is trending down. good urine output. USG axilla neg for loculations Get Chest ct r/o PE, given persistent tachycardia in light of clinically improving infection , will also help look at the progress of pulmonary lesions again repeat blood cultures, sputum cx, urine legionella, strep, mycoplasma start on IV levofloxacin to cover for atypical organisms, and possible resp pathogens. Wound culture was growing staph, pt on anceph and vanco for cellulitis. 03/01 Patient seen examined, comfortable in bed, a bit drowsy after IV pain medication Denies any new complaints or concerns, labs show normal wbc count, low K, but neg microbiology, sputum cs is gpc chains and pairs, Clinically improving with levofloxacin/vanco/cefazolin. Transfer patient to medical floor status 03/02 Patient seen and examined, doing well does have shortness of breath on exertion. WBC trended up today, however procalcitonin is trending down. Chest x-ray done today shows improvement in infiltrates on the right side, patient still is febr ile however fever curve is trending down Clinically patient is better. Wound looks much better does still have area of induration under the skin. Discontinue vancomycin Pertinent ROS: Denies headache, dizziness Denies chest pain, palpitations Denies cough or shortness of breath (only on exertion) Denies abdominal pain, nausea or vomiting. - Constitutional Vitals: Vital Signs Temp Pulse Resp BP Pulse Ox 97.8 F 102 H 22 129/81 94 03/02/19 04:00 03/02/19 04:00 03/02/19 04:00 03/02/19 04:00 03/02/19 04:00 Period Temp Pulse Resp BP Sys/Calderón Pulse Ox Last 24 Hr 97.8 F-101.7 F 93-115 18-24 124-139/81-95 94-98 Intake and Output 03/01/19 03/02/19 03/02/19 21:59 05:59 13:59 Intake Total 1999 1299 240 Output Total 1924 Balance 1999 240 Weight 381 lb 6.395 oz Intake & Output: Intake & Output 03/01/19 03/02/19 03/02/19 21:59 05:59 13:59 Intake Total 1999 1300 240 Output Total 1924 Balance 1999 240 Weight 381 lb 6.395 oz Intake: IV 1500 500 Vancomycin 1,500 mg In Sodium 500 500 Chloride 0.9% 500 ml @ 333.3 mls/hr IV Q8H [facility] Rx#:[id number] Oral 500 800 240 Output: Void Amount 1924 Other: Meal Dinner Breakfast Percent of Meal Consumed 50% 100% Feeding Ability Independent Independent Urine Appearance Clear Urine Color Light [place] Medical - PN: Obj Da - Labs CBC & Chem 7: 03/02/19 04:23 03/02/19 04:23 Labs: Abnormal Lab Results 03/02/19 03/02/19 03/01/19 04:23 04:23 04:15 WBC 12.3 H RBC 4.36 L Hgb 12.1 L Hct 36.0 L RDW 15.2 H Gran % 78.2 H Lymph % (Auto) 9.6 L Gran # 9.6 H Lymph # (Auto) 1.2 L [place] # (Auto) 1.0 H Band Neutrophils % Lymphocytes % WBC Morphology Toxic Granulation Potassium 3.2 L Carbon Dioxide Glucose Calcium 8.4 L 8.2 L Phosphorus 2.6 L Total Bilirubin 1.5 H 1.6 H Direct Bilirubin 0.7 H 1.1 H GGT 222 H 192 H Alkaline Phosphatase 187 H 164 H Total Protein 5.5 L Albumin 2.8 L 2.5 L Albumin/Globulin Ratio 0.9 L 0.8 L Triglycerides 183 H 181 H 03/01/19 02/28/19 02/28/19 04:15 03:59 03:59 WBC RBC 4.10 L 4.19 L Hgb 11.6 L 11.8 L Hct 34.2 L 34.7 L RDW 15.7 H 15.2 H Gran % Lymph % (Auto) 7.9 L Gran # Lymph # (Auto) 0.7 L [place] # (Auto) Band Neutrophils % 17 H Lymphocytes % 11 L WBC Morphology Abnorm A Toxic Granulation 2+ A Potassium Carbon Dioxide 19 L Glucose 112 H Calcium 8.2 L Phosphorus 2.0 L Total Bilirubin 2.7 H Direct Bilirubin 1.9 H GGT 175 H Alkaline Phosphatase 167 H Total Protein 5.5 L Albumin 2.5 L Albumin/Globulin Ratio 0.8 L Triglycerides 188 H Meds: Medications Acetaminophen (Tylenol) 1,000 mg PO TID [facility] Last Admin: 03/02/19 08:20 Dose: Not Given Documented by: Alprazolam (Xanax) 0.5 mg PO TIDP PRN PRN Reason: Anxiety Last Admin: 03/01/19 21:30 Dose: 0.5 mg Documented by: Cefazolin Sodium (Ancef) 2 gm IV Q8H [facility]; Protocol Last Admin: 03/02/19 05:23 Dose: 2 gm Documented by: Docusate Sodium (Colace) 100 mg PO BID [facility] Last Admin: 03/02/19 08:07 Dose: Not Given Documented by: Enoxaparin Sodium (Lovenox) 40 mg SQ BID [facility] Last Admin: 03/02/19 08:07 Dose: 40 mg Documented by: Lactated Ringer's (Lactated Ringers) 1,000 mls @ 75 mls/hr IV .[id number] [facility] Last Admin: 03/02/19 02:01 Dose: 75 mls/hr Documented by: Levofloxacin (Levaquin) 750 mg in 150 mls @ 100 mls/hr IV Q24H [facility] Last Admin: 03/02/19 09:41 Dose: 100 mls/hr Documented by: Oxycodone HCl (Roxicodone) 5 mg PO Q4HP PRN PRN Reason: PAIN LEVEL 3-6 Last Admin: 03/01/19 23:03 Dose: 5 mg Documented by: Pantoprazole Sodium (Protonix) 40 mg PO BIDAC [facility] Last Admin: 03/02/19 08:07 Dose: 40 mg Documented by: Potassium Chloride (Kdur) 20 meq PO BIDCC [facility] Stop: 03/02/19 17:31 Last Admin: 03/02/19 08:07 Dose: 20 meq Documented by: Promethazine HCl (Phenergan) 12.5 mg IV Q6HP PRN PRN Reason: Nausea And Vomiting Last Admin: 03/01/19 21:29 Dose: 12.5 mg Documented by: Sodium Chloride (Saline Flush) 10 ml IV Q8 [facility] Last Admin: 03/02/19 05:25 Dose: 10 ml Documented by: Trazodone HCl (Desyrel) 50 - 100 mg PO HS PRN PRN Reason: Insomnia Medical - PN: A/P - Time Spent With Patient Total time spent is greater than 50% in coordination of care (as documented) at patient's floor/unit and/or counseling patient: - Narrative A/P Narrative: A: *Left axillary skin abscess with surrounding cellulitis: -Original ED cultures with MSSA -USG neg, CT neg for abscess -Clinically improving -Only on Ancef now discontinue vancomycin . *Septic Shock: 2/2 above, resolved -febrile, lactate ok, bandemia present -off pressors, good Urine output, *LYLY, concern for ATN: 2/2 above -good UOP, acute kidney injury has resolved -Creat back to baseline *Hyponatremia/hypokalemia: resolved *Hyperbilirubinemia, conjugated /elevated ALP -GB unremarkable, a few polyps but no stones -cholestasis suspect related to Sepsis*Fatty liver: - LFT trending down *Obesity Morbid BMI 49 *HTN: On losartan 50 mill grams daily, held for now blood pressure stable *GERD *Atypical Pneumonia -Sputum and blood cultures negative. -Patient is responding to antibiotics, vancomycin has been discontinued *Tachycardia, due to acute infection, -Echo neg -tsh neg -CTA neg for PE -improving -ppx: Lovenox/home PPI Transfer to medical floor status
[2019-03-02 10:38] LABS: Band Neutrophils % 26 % (0-10); Dohle Bodies OCC (NONE SEEN); Eosinophils % (Manual) 5 % (0-7); Hypochromasia FEW (NONE SEEN); Lymphocytes % 12 % (15-49); Monocytes % (Manual) 8 % (1-12); Platelet Estimate NORMAL (NORMAL); RBC Morphology ABNORM (NORMAL); Segmented Neutrophils % 49 % (38-78); Toxic Granulation 1+ (NONE SEEN)
--- NOTE | 2019-03-02 11:59 | General Surgery Progress Note ---
Subjective Patient reports: feels better, pain is less, tolerating a regular diet, flatus, fever Narrative: Note initiated : 03/02/19 at 11:59 am Service Date, if different from initiated Date: [] Patient: Elder Smith 28 y/o M admitted on 02/26/19 for Cellulitis. Chief Complaint: [Patient is generally improved. He complains of being weak and he has shortness of breath with dyspnea on exertion. His inspiratory volume is only about 600 cc and he is encouraged to work with his inspiratory care to get his volume to at least 2000 cc. He denies having any pain in his axilla and the cellulitis has resolved. White blood count is up to 12.3 and his bands are also increased. He is tolerating diet without nausea or vomiting. He still has significant infiltrate though there is a suggestion of improvement. He denies cough.] Objective Temp Pulse Resp BP Pulse Ox 98.5 F 102 H 24 H 136/84 94 03/02/19 08:00 03/02/19 04:00 03/02/19 08:00 03/02/19 08:00 03/02/19 04:00 - Additional Data Intake & Output - Last 24 hours: Intake & Output 02/28/19 03/01/19 03/02/19 03/03/19 05:59 05:59 05:59 05:59 Intake Total 7944 8217 5500 240 Output Total 8000 5050 2825 Balance -56 3167 2675 240 Weight 363 lb 12.8 oz 374 lb 12.8 oz 381 lb 6.395 oz - General physical appearance well developed, well nourished, no distress - Eyes PERRL, normal ocular movement - ENT normal pinna, normal nares, normal mucosa, no hearing loss, no congestion - Neck no masses, no bruits, trachea midline, no lymphadenopathy, no venous distension - Respiratory normal expansion, normal respiratory effort - Cardiovascular Cardiovascular exam: Present: normal rate and rhythm, +S1, +S2, tachycardia. Absent: JVD - Abdomen non tender, bowel sounds (present), surgical scars (none), masses (none) - Integumentary no rash, no growths, no abnormal pigmentation, other (cellulitis of left upper extremity and chest wall have resolved) - Neurologic normal coordination, normal sensation - Musculoskeletal normal gait, normal posture - Psychiatric oriented to time, oriented to person, oriented to place, speech is normal, memory intact - Labs 03/02/19 04:23 03/02/19 04:23 Diabetes panel 03/02/19 Range/Units 04:23 Sodium 138 (133-145) mmol/L Potassium 3.3 (3.3-5.1) mmol/L Chloride 100 (96-108) mmol/L Carbon Dioxide 26 (22-30) mmol/L BUN 7 (6-20) mg/dl Creatinine 0.8 (0.7-1.2) mg/dl Glucose 103 (70-105) mg/dL Calcium 8.4 L (8.6-10.4) mg/dl AST 20 (0-37) U/l ALT 24 (0-40) U/l Alkaline Phosphatase 187 H (39-117) U/L Total Protein 6.0 (5.9-8.4) gm/dL Albumin 2.8 L (3.2-5.2) gm/dL Triglycerides 183 H (<150) mg/dl Calcium panel 03/02/19 Range/Units 04:23 Calcium 8.4 L (8.6-10.4) mg/dl Phosphorus 2.6 L (2.7-4.5) mg/dL Albumin 2.8 L (3.2-5.2) gm/dL Pituitary panel 03/02/19 Range/Units 04:23 Sodium 138 (133-145) mmol/L Potassium 3.3 (3.3-5.1) mmol/L Chloride 100 (96-108) mmol/L Carbon Dioxide 26 (22-30) mmol/L BUN 7 (6-20) mg/dl Creatinine 0.8 (0.7-1.2) mg/dl Glucose 103 (70-105) mg/dL Calcium 8.4 L (8.6-10.4) mg/dl Adrenal panel 03/02/19 Range/Units 04:23 Sodium 138 (133-145) mmol/L Potassium 3.3 (3.3-5.1) mmol/L Chloride 100 (96-108) mmol/L Carbon Dioxide 26 (22-30) mmol/L BUN 7 (6-20) mg/dl Creatinine 0.8 (0.7-1.2) mg/dl Glucose 103 (70-105) mg/dL Calcium 8.4 L (8.6-10.4) mg/dl Total Bilirubin 1.5 H (0.0-1.0) mg/dL AST 20 (0-37) U/l ALT 24 (0-40) U/l Alkaline Phosphatase 187 H (39-117) U/L Total Protein 6.0 (5.9-8.4) gm/dL Albumin 2.8 L (3.2-5.2) gm/dL Assessment and Plan (1) Acute sepsis Status: Acute Assessment and plan: Clinically improved with each passing day; white blood count 12.3 Current Visit: Yes (2) Acute renal injury due to sepsis Status: Resolved Assessment and plan: Acute kidney injury has resolved. BUN and creatinine are normal Current Visit: Yes (3) Abscess of axilla, left Status: Resolved Assessment and plan: Significant reduction in induration and erythema of the axilla, anterior left chest medial upper arm. No drainage noted from the abscess cavity Current Visit: No - Time Spent With Patient Total time spent is greater than 50% in coordination of care (as documented) at patient's floor/unit and/or counseling patient:
[2019-03-02] MEDS ORDERED: NAPROXEN 250 MG TABLET PO ONE (13:37)
[2019-03-02] MEDS: ALPRAZolam 0.5 MG TABLET PO PRN (21:45)
[2019-03-02] MEDS: PROMETHAZINE 25 MG/ML VIAL IV PRN (21:45)
[2019-03-03 05:13] LABS: Basophils # (Auto) 0 K/mcL (0.0-0.3); Basophils % (Auto) 0.2 % (0.0-2.0); Eosinophils # (Auto) 0.5 K/mcL (0.0-0.7); Eosinophils % (Auto) 4.2 % (0.0-7.0); Hematocrit 35.1 % (41.0-55.0); Hemoglobin 11.7 g/dL (13.5-16.5); Lymphocytes # (Auto) 1.4 K/mcL (1.5-4.8); Lymphocytes % (Auto) 11.7 % (15.5-49.0); Mean Cell Volume 83.6 fL (80.0-100.0); Mean Corpuscular HGB Conc 33.5 g/dL (31.0-36.0); Mean Platelet Volume 8.9 fL (7.4-10.4); Monocytes # (Auto) 0.6 K/mcL (0.1-0.9); Monocytes % (Auto) 4.9 % (1.0-12.0); Platelet Count 178 K/mcL (140-440); Red Cell Distribution Width 15.5 % (11.5-14.5); WBC 11.6 K/mcL (4.5-11.0)
[2019-03-03] MEDS: ceFAZolin 1 GM VIAL IV SCH (05:22)
[2019-03-03] MEDS: 0.9 % SODIUM CHLORIDE 10 ML SYRINGE IV SCH (05:22)
[2019-03-03 05:38] LABS: ALT/SGPT 20 U/l (0-40); AST/SGOT 19 U/l (0-37); Albumin 2.6 gm/dL (3.2-5.2); Albumin/Globulin Ratio 0.7 (1.0-2.3); Alkaline Phosphatase 186 U/L (39-117); Bilirubin,Direct 0.5 mg/dL (0.0-0.3); Bilirubin,Total 1.2 mg/dL (0.0-1.0); Blood Urea Nitrogen 9 mg/dl (6-20); Calcium 8.5 mg/dl (8.6-10.4); Carbon Dioxide 27 mmol/L (22-30); Chloride 100 mmol/L (96-108); Globulin 3.6 gm/dL (2.2-3.7); Glomerular Filtration Rate 120; Glucose 100 mg/dL (70-105); Lactate Dehydrogenase 187 U/L (94-250); Magnesium 1.9 mg/dL (1.6-2.5); Phosphorous 3.8 mg/dL (2.7-4.5); Potassium 3.4 mmol/L (3.3-5.1); Sodium 139 mmol/L (133-145); Triglycerides 166 mg/dl (<150); Uric Acid 3.8 mg/dL (2.5-8.0)
[2019-03-03] MEDS: PROMETHAZINE 25 MG/ML VIAL IV PRN (07:16)
[2019-03-03] MEDS: PANTOPRAZOLE 40 MG TABLET PO SCH (07:16)
[2019-03-03] MEDS ORDERED: LEVOFLOXACIN 750 MG/150 ML BAG IV SCH (09:00)
[2019-03-03] MEDS: ACETAMINOPHEN 500 MG TABLET PO SCH (09:14)
[2019-03-03] MEDS: DOCUSATE SODIUM 100 MG CAPSULE PO SCH (09:15)
[2019-03-03] MEDS: ENOXAPARIN 40 MG/0.4 ML SYRINGE SQ SCH (09:15)
[2019-03-03] MEDS: LEVOFLOXACIN 750 MG/150 ML BAG IV SCH (09:44)
--- NOTE | 2019-03-03 13:18 | Discharge Summary ---
Medical - DS: Prov Patient information: Note initiated : 03/03/19 at 1:11 pm Service Date, if different from initiated Date: [] Patient: Elder Smith 28 y/o M admitted on 02/26/19 for Cellulitis. Chief Complaint: [] Date of admission: 02/26/19 10:43 Discharge date: 03/03/19 (.) Primary care physician: VANIA Shin Consults: 02/26/19 15:45 Consult to Physician [CONS] Routine Comment: Consulting Provider: Sherman Almaguer Reason For Exam: Physician to Consult Discharging clinician: Caridad Rosales Medical - DS: Meds - Discharge Medications Prescriptions: Cephalexin [Keflex] 500 mg PO QID #40 cap Levofloxacin [Levaquin] 750 mg PO DAILY #4 tab oxyCODONE HCL [Roxicodone] 5 mg PO Q4HP PRN #20 tab PRN Reason: Pain Level 3-6 Active and Home Medications: Home Medications Losartan Potassium 50 mg PO DAILY 10/17/18 [History Confirmed 02/26/19 Last Taken 02/26/19 08:30] ranitidine 300 mg capsule 300 mg PO BID 02/23/19 [History Confirmed 02/26/19 Last Taken 02/26/19 08:30] Medical - DS: Hosp Hospital course: Mr. Smith is a 28 year old M Who presented to the ED on Monday with a swelling in his left axilla diagnosed with skin abscess likely extending from carbuncle. Anabiotic's and tramadol and to follow-up with Dr. Mistry for further evaluation as it is felt that he may need further I&D than what was done in the ED. Patient took Bactrim but seem to have an allergic reaction to it including hives and pruritus. He states his erythema and tenderness is also progressed over the weekend. He saw Dr. Mistry in his office today and was found to be hypotensive as well and systolics in the 70s. And was thus admitted in the hospital. Shortly after admission he was found to be hypotensive. Patient is asymptomatic at rest. However does note that he is quite lightheaded when he is up to move around is been so for the past few days. Had some nausea and chills denies fever. Said a dry cough for couple days. He was found to have a bandemia as well as acute kidney injury. An elevated bilirubin. In August he was evaluated for gallstones. It was thought that he had a gallstone that may have passed at that time he had an ultrasound MRCP which did not catch any stone at that time. He is found to have fatty liver on imaging. But he is noted to have a bilirubin of 2.3 mostly conjugated at this time. Denies any right upper quadrant abdominal pain currently. 02/27 Patient's blood pressure trended down overnight had to be put on vasopressors. Febrile overnight. States he feels about the same as yesterday, Tired. Has a dry cough no other complaints. 02/28 Patient seen examined, no acute issues, patient has no pain today, but has low grade fevers, notes cough x [address] reviewed yesterday, has astrid peripheral infiltrates ? atypical infection? inflammatory disease? embolic episode? echo neg for vegetations, blood cultures neg so far Pt tachycardic at baseline with significant worsening with activity, labs show improved wbc count, but still has 17 bands, creat back to normal, BP stable, not on pressors x 24 hrs, procalcitonin is trending down. good urine output. USG axilla neg for loculations Get Chest ct r/o PE, given persistent tachycardia in light of clinically improving infection , will also help look at the progress of pulmonary lesions again repeat blood cultures, sputum cx, urine legionella, strep, mycoplasma start on IV levofloxacin to cover for atypical organisms, and possible resp pathogens. Wound culture was growing staph, pt on anceph and vanco for cellulitis. 03/01 Patient seen examined, comfortable in bed, a bit drowsy after IV pain medication Denies any new complaints or concerns, labs show normal wbc count, low K, but neg microbiology, sputum cs is gpc chains and pairs, Clinically improving with levofloxacin/vanco/cefazolin. Transfer patient to medical floor status 03/02 Patient seen and examined, doing well does have shortness of breath on exertion. WBC trended up today, however procalcitonin is trending down. Chest x-ray done today shows improvement in infiltrates on the right side, patient still is febrile however fever curve is trending down Clinically patient is better. Wound looks much better does still have area of induration under the skin. Discontinue vancomycin 03/03 patient seen examined, doing well, no fever x 24 hrs, redness in axilla significantly improved, pain improved wbc trending down and stable, no need for oxygen, able to ambulate hallway wit hout any issues STable for discahrge In summary Patient admitted to the hospital with a diagnosis of severe cellulitis of the left axilla, as well as pneumonia multifocal. Patient also had severe sepsis with septic shock, and acute kidney injury. Patient was treated with broad-spectrum antibiotics, microbiology was negative except for MSSA staph in the axillary cultures. Patient's CT chest showed multifocal pulmonary infiltrates likely pneumonia. Echocardiogram was negative for vegetations, blood cultures negative. Patient responded very well to IV fluids and antibiotics. He did require pressors briefly during the hospital stay. At the time of discharge his renal function is back to baseline, and is able to tolerate p.o. diet very well is afebrile and is ambulating without any issues. Patient did have abnormal LFTs during the hospital stay which are likely related to fatty infiltration of the liver and sepsis. Quadrant ultrasound was negative except for a gallbladder polyp. I would recommend that the PCP repeat chest x-ray and CBC and a CMP in 1 to 2 weeks as an outpatient to follow-up on the progress. Patient will be discharged with oral antibiotics Keflex 500 mg 4 times a day for 10 more days, and levofloxacin 750 mg once a day for 4 days. Discharge diagnosis: Septic Shock, Cellulitis with Abscess, Pneumonia, Acute kidney injury - Time Spent with Patient Total time spent providing and/or coordinating discharge services: Greater than 30 minutes Medical - DS: Exam - Constitutional Vitals: Vital Signs Temp Pulse Resp BP BP Pulse Ox 03/03/19 11:49 98.9 F 97 H 20 147/91 96 03/03/19 08:00 89 03/03/19 06:30 98.4 F 89 20 126/74 96 03/03/19 04:00 98.0 F 86 18 138/89 94 03/02/19 23:36 97.9 F 87 20 127/82 94 03/02/19 19:43 98.7 F 92 H 20 148/95 98 03/02/19 16:00 98.3 F 103 H 22 126/74 94 Intake and Output 03/02/19 03/03/19 03/03/19 21:59 05:59 13:59 Intake Total 600 450 850 Balance 600 450 850 Intake: IV 150 150 Oral 600 300 700 Other: # Voids 2 2 Weight 378 lb Additional comments: Constitutional; Afebrile, cooperative, alert, not in distress. Respiratory system: Air Entry equal on both sides, No crackles or wheezing, no rhonchi. CVS- Rate rhythm regular, S1,S2 heard, no gallop, no rub. Abdomen- Soft nontender abdomen, no organomegaly, no tenderness, no guarding or rigidity, [employer]- AOOx3, moving all extremities, no gross focal deficit noted. Medical - DS: Data Labs on day of discharge: Labs from last 24 hours 03/03/19 03/03/19 04:38 04:38 WBC 11.6 H RBC 4.20 L Hgb 11.7 L Hct 35.1 L MCV 83.6 MCH 28.0 MCHC 33.5 RDW 15.5 H Plt Count 178 MPV 8.9 Gran % 79.0 H Lymph % (Auto) 11.7 L [place] % (Auto) 4.9 Eos % (Auto) 4.2 Baso % (Auto) 0.2 Gran # 9.2 H Lymph # (Auto) 1.4 L [place] # (Auto) 0.6 Eos # (Auto) 0.5 Baso # (Auto) 0 Sodium 139 Potassium 3.4 Chloride 100 Carbon Dioxide 27 Anion Gap 12.0 BUN 9 Creatinine 0.8 GFR Calculation 120 Glucose 100 Uric Acid 3.8 Calcium 8.5 L Phosphorus 3.8 Magnesium 1.9 Total Bilirubin 1.2 H Direct Bilirubin 0.5 H GGT 226 H AST 19 ALT 20 Alkaline Phosphatase 186 H Lactate Dehydrogenase 187 Total Protein 6.2 Albumin 2.6 L Globulin 3.6 Albumin/Globulin Ratio 0.7 L Triglycerides 166 H Preliminary micro results at discharge 02/28/19 08:25 Blood Culture - Preliminary Blood 02/28/19 08:25 Blood Culture - Preliminary Blood 02/26/19 16:50 Blood Culture - Preliminary Blood 02/26/19 16:31 Blood Culture - Preliminary Blood Medical - DS: A/P - Patient/Caregiver Discharge Instructions Activity: increase activity as tolerated Diet: Regular Diet Additional Instructions: Keep your wound dry as much as possible. Complete antibiotic course as prescribed, cephalexin is 500 mg 4 times a day for another 10 days this is for cellulitis, and levofloxacin 750 mg once a day for another 4 days this is for pneumonia. If you redness worsens or you develop fever or chills please go back to the emergency room. Follow-up with your primary care provider in 1 to 2 weeks. Make sure your PCP checks your chest x-ray as well as your blood work to make sure that you are continuing to improve. Follow-up with Dr. Mistry in 1 week in his clinic - Follow up Plan Disposition: Home, Self-Care Prognosis: Fair Rehab Potential: Fair I certify that the patient requires SNF services: No Overall status at discharge: patient is progressing back to baseline
== END 2019-03-03 14:35 | disposition home or self-care (01) | DRG 871 ==
LOC: ICU 10:43 → MEDSUR 03-01 12:18
PROVIDERS: ADMIT Family Medicine Adult Medicine; ATTEND Internal Medicine

== ENCOUNTER 2019-03-05 10:52 | Inpatient (IN) ==
[2019-03-05] MEDS ORDERED: ONDANSETRON 4 MG/2 ML VIAL IV PRN (10:58)
--- NOTE | 2019-03-05 11:30 | XRay Report ---
INDICATION: Pneumonia. Follow-up TECHNIQUE: AP chest x-ray,portable semiupright COMPARISON: CT scan dated 02/28/2019. Chest x-ray dated 03/02/2019 FINDINGS:There are bilateral parenchymal infiltrates, left worse than right. There is upper lobe predominance. There is a nodular component which is demonstrated on CT scan. Appearance remains consistent with pneumonia. Pulmonary vasculitis is possible. Continued follow-up recommended. Infiltrates are essentially unchanged since 03/02/2019 allowances are made for differences in technique. No new abnormality. No evidence for pleural fluid. Heart size and vascularity are normal. IMPRESSION: 1. Bilateral pulmonary parenchymal infiltrates of left upper lobe predominance. 2. No definite interval change since 03/02/2019 Interpreted and Authenticated by: Abdelrahman Levin 03/05/19
[2019-03-05 12:49] LABS: Basophils # (Auto) 0 K/mcL (0.0-0.3); Basophils % (Auto) 0.2 % (0.0-2.0); Eosinophils # (Auto) 0.7 K/mcL (0.0-0.7); Eosinophils % (Auto) 4.8 % (0.0-7.0); Granulocytes % (Auto) 78.9 % (38.0-78.0); Hematocrit 39.4 % (41.0-55.0); Hemoglobin 12.7 g/dL (13.5-16.5); Lymphocytes # (Auto) 1.4 K/mcL (1.5-4.8); Lymphocytes % (Auto) 9.8 % (15.5-49.0); Mean Corpuscular HGB Conc 32.3 g/dL (31.0-36.0); Mean Platelet Volume 8.9 fL (7.4-10.4); Monocytes # (Auto) 0.9 K/mcL (0.1-0.9); Monocytes % (Auto) 6.3 % (1.0-12.0); Platelet Count 256 K/mcL (140-440); RBC 4.69 M/mcL (4.50-5.90); Red Cell Distribution Width 15.7 % (11.5-14.5); WBC 13.9 K/mcL (4.5-11.0)
[2019-03-05 13:04] LABS: ALT/SGPT 23 U/l (0-40); AST/SGOT 20 U/l (0-37); Albumin 3.5 gm/dL (3.2-5.2); Albumin/Globulin Ratio 0.9 (1.0-2.3); Alkaline Phosphatase 170 U/L (39-117); Bilirubin,Direct 0.4 mg/dL (0.0-0.3); Blood Urea Nitrogen 13 mg/dl (6-20); Calcium 8.7 mg/dl (8.6-10.4); Carbon Dioxide 27 mmol/L (22-30); Chloride 100 mmol/L (96-108); Globulin 3.9 gm/dL (2.2-3.7); Glomerular Filtration Rate 127; Glucose 98 mg/dL (70-105); Lactate Dehydrogenase 191 U/L (94-250); Magnesium 2.2 mg/dL (1.6-2.5); Phosphorous 3.9 mg/dL (2.7-4.5); Potassium 4.2 mmol/L (3.3-5.1); Sodium 137 mmol/L (133-145); Triglycerides 149 mg/dl (<150); Uric Acid 3.5 mg/dL (2.5-8.0)
[2019-03-05] MEDS: LEVOFLOXACIN 750 MG/150 ML BAG IV SCH (13:24)
[2019-03-05] MEDS: 0.9 % SODIUM CHLORIDE 1,000 ML IV SCH (13:24)
[2019-03-05] MEDS: 0.9 % SODIUM CHLORIDE 10 ML SYRINGE IV SCH ×2 (13:49→22:21)
[2019-03-05] MEDS: oxyCODONE/APAP 10/325MG TABLET PO PRN (19:53)
[2019-03-05] MEDS: ALPRAZolam 0.5 MG TABLET PO PRN (21:06)
[2019-03-05] MEDS: DOCUSATE SODIUM 100 MG CAPSULE PO SCH (21:07)
[2019-03-06] MEDS: 0.9 % SODIUM CHLORIDE 1,000 ML IV SCH ×3 (01:33→15:33)
[2019-03-06] MEDS: 0.9 % SODIUM CHLORIDE 10 ML SYRINGE IV SCH ×4 (05:23→22:33)
[2019-03-06 05:57] LABS: Hematocrit 36.4 % (41.0-55.0); Mean Corpuscular HGB Conc 33.1 g/dL (31.0-36.0); Mean Platelet Volume 8.7 fL (7.4-10.4); Platelet Count 259 K/mcL (140-440); RBC 4.28 M/mcL (4.50-5.90); Red Cell Distribution Width 15.1 % (11.5-14.5); WBC 11.5 K/mcL (4.5-11.0)
[2019-03-06 07:00] LABS: Eosinophils % (Manual) 5 % (0-7); Lymphocytes % 23 % (15-49); Monocytes % (Manual) 10 % (1-12); Platelet Estimate NORMAL (NORMAL); RBC Morphology NORMAL (NORMAL); Segmented Neutrophils % 62 % (38-78); Toxic Granulation 1+ (NONE SEEN)
[2019-03-06] MEDS: LEVOFLOXACIN 750 MG/150 ML BAG IV SCH (10:02)
[2019-03-06] MEDS: DOCUSATE SODIUM 100 MG CAPSULE PO SCH ×2 (11:20→21:37)
--- NOTE | 2019-03-06 11:28 | General Surgery Progress Note ---
Subjective Patient reports: feels better, pain is less, afebrile Narrative: Note initiated : 03/06/19 at 11:26 am Service Date, if different from initiated Date: [] Patient: Elder Smith 28 y/o M admitted on 03/05/19 for Axillary Abscess . Chief Complaint: [patient is doing well. He has less pain in his axilla. He has been afebrile. White blood count is 11.5. Gram stain shows gram-positive cocci in clusters. He still has a modest amount of purulent drainage.] Objective Temp Pulse Resp BP Pulse Ox 96.4 F L 84 18 116/76 96 03/06/19 07:37 03/06/19 07:37 03/06/19 07:37 03/06/19 07:37 03/06/19 07:37 - Additional Data Intake & Output - Last 24 hours: Intake & Output 03/04/19 03/05/19 03/06/19 03/07/19 05:59 05:59 05:59 05:59 Intake Total 2350 Balance 2350 Weight 345 lb - General physical appearance well developed, well nourished, no distress - Eyes PERRL, normal ocular movement - ENT normal pinna, normal nares, normal mucosa, no hearing loss, no congestion - Neck no masses, no bruits, trachea midline, no lymphadenopathy, no venous distension - Respiratory normal expansion, normal respiratory effort, clear to auscultation - Cardiovascular Cardiovascular exam: Present: normal rate and rhythm, +S1, +S2. Absent: JVD, tachycardia - Abdomen non tender, bowel sounds (present), surgical scars (none), masses (none) - Integumentary no rash, no growths, no abnormal pigmentation - Neurologic normal coordination, normal sensation - Musculoskeletal normal gait, normal posture - Psychiatric oriented to time, oriented to person, oriented to place, speech is normal, memory intact - Additional Exam Induration of left axilla is improving. There is still a modest amount of purulent drainage. - Labs 03/06/19 04:15 03/05/19 12:03 Diabetes panel 03/05/19 Range/Units 12:03 Sodium 137 (133-145) mmol/L Potassium 4.2 (3.3-5.1) mmol/L Chloride 100 (96-108) mmol/L Carbon Dioxide 27 (22-30) mmol/L BUN 13 (6-20) mg/dl Creatinine 0.7 (0.7-1.2) mg/dl Glucose 98 (70-105) mg/dL Calcium 8.7 (8.6-10.4) mg/dl AST 20 (0-37) U/l ALT 23 (0-40) U/l Alkaline Phosphatase 170 H (39-117) U/L Total Protein 7.4 (5.9-8.4) gm/dL Albumin 3.5 (3.2-5.2) gm/dL Triglycerides 149 (<150) mg/dl Calcium panel 03/05/19 Range/Units 12:03 Calcium 8.7 (8.6-10.4) mg/dl Phosphorus 3.9 (2.7-4.5) mg/dL Albumin 3.5 (3.2-5.2) gm/dL Pituitary panel 03/05/19 Range/Units 12:03 Sodium 137 (133-145) mmol/L Potassium 4.2 (3.3-5.1) mmol/L Chloride 100 (96-108) mmol/L Carbon Dioxide 27 (22-30) mmol/L BUN 13 (6-20) mg/dl Creatinine 0.7 (0.7-1.2) mg/dl Glucose 98 (70-105) mg/dL Calcium 8.7 (8.6-10.4) mg/dl Adrenal panel 03/05/19 Range/Units 12:03 Sodium 137 (133-145) mmol/L Potassium 4.2 (3.3-5.1) mmol/L Chloride 100 (96-108) mmol/L Carbon Dioxide 27 (22-30) mmol/L BUN 13 (6-20) mg/dl Creatinine 0.7 (0.7-1.2) mg/dl Glucose 98 (70-105) mg/dL Calcium 8.7 (8.6-10.4) mg/dl Total Bilirubin 1.0 (0.0-1.0) mg/dL AST 20 (0-37) U/l ALT 23 (0-40) U/l Alkaline Phosphatase 170 H (39-117) U/L Total Protein 7.4 (5.9-8.4) gm/dL Albumin 3.5 (3.2-5.2) gm/dL Assessment and Plan (1) Abscess of axilla, left Status: Chronic Assessment and plan: We'll continue present antibiotics pending culture results. May consider PICC line placement. After final culture and sensitivities are available. Current Visit: No - Time Spent With Patient Total time spent is greater than 50% in coordination of care (as documented) at patient's floor/unit and/or counseling patient:
[2019-03-06] MEDS: ACETAMINOPHEN 325 MG TABLET PO PRN (15:14)
[2019-03-06] MEDS: PIPERACILLIN SODIUM/TAZOBACTAM 3.375 GM in DEXTROSE 5% IN WATER 50 ML IV SCH ×3 (15:16→23:48)
[2019-03-06] MEDS ORDERED: 0.9 % SODIUM CHLORIDE 10 ML SYRINGE IV PRN (15:39)
[2019-03-06] MEDS: oxyCODONE/APAP 10/325MG TABLET PO PRN (20:49)
[2019-03-06] MEDS: ALPRAZolam 0.5 MG TABLET PO PRN (22:05)
[2019-03-07] MEDS: 0.9 % SODIUM CHLORIDE 1,000 ML IV SCH ×2 (01:53→17:53)
[2019-03-07] MEDS: PIPERACILLIN SODIUM/TAZOBACTAM 3.375 GM in DEXTROSE 5% IN WATER 50 ML IV SCH ×4 (05:15→23:08)
[2019-03-07] MEDS: 0.9 % SODIUM CHLORIDE 10 ML SYRINGE IV SCH ×5 (05:15→20:37)
[2019-03-07 05:51] LABS: Hematocrit 37.3 % (41.0-55.0); Hemoglobin 12.3 g/dL (13.5-16.5); Mean Cell Volume 84.4 fL (80.0-100.0); Mean Corpuscular HGB Conc 32.9 g/dL (31.0-36.0); Mean Platelet Volume 8.8 fL (7.4-10.4); Platelet Count 312 K/mcL (140-440); RBC 4.42 M/mcL (4.50-5.90); Red Cell Distribution Width 15.1 % (11.5-14.5); WBC 10.2 K/mcL (4.5-11.0)
[2019-03-07 06:48] LABS: Basophils % (Manual) 1 % (0-2); Eosinophils % (Manual) 10 % (0-7); Lymphocytes % 24 % (15-49); Monocytes % (Manual) 6 % (1-12); Platelet Estimate NORMAL (NORMAL); RBC Morphology NORMAL (NORMAL); Segmented Neutrophils % 59 % (38-78); Toxic Granulation 1+ (NONE SEEN)
[2019-03-07] MEDS: DOCUSATE SODIUM 100 MG CAPSULE PO SCH ×2 (10:48→20:36)
[2019-03-07] MEDS: ALPRAZolam 0.5 MG TABLET PO PRN ×2 (10:48→21:46)
[2019-03-07] MEDS: LEVOFLOXACIN 750 MG/150 ML BAG IV SCH (12:54)
--- NOTE | 2019-03-07 16:00 | General Surgery Progress Note ---
Subjective Patient reports: feels better, pain is less, tolerating a regular diet, afebrile Narrative: Note initiated : 03/07/19 at 3:57 pm Service Date, if different from initiated Date: [] Patient: Elder Smith 28 y/o M admitted on 03/05/19 for Axillary Abscess . Chief Complaint: [patient is doing well. He has less pain. He still has a moderate amount of purulent drainage from his axilla. He has been afebrile. White blood count is 10.2. The cultures growing out methicillin-resistant Staphylococcus aureus, which is pansensitive. Discussed with patient the need to have a PICC line placed and a repeat attempt will be made to do that tonight] Objective Temp Pulse Resp BP Pulse Ox 98 F 76 16 108/61 94 03/07/19 15:25 03/07/19 15:25 03/07/19 15:25 03/07/19 15:25 03/07/19 15:25 - Additional Data Intake & Output - Last 24 hours: Intake & Output 03/05/19 03/06/19 03/07/19 03/08/19 05:59 05:59 05:59 05:59 Intake Total 3350 1000 790 Balance 3350 1000 790 Weight 345 lb 342 lb - General physical appearance well developed, well nourished, no distress - Eyes PERRL, normal ocular movement - ENT normal pinna, normal nares, normal mucosa, no hearing loss, no congestion - Neck no masses, no bruits, trachea midline, no lymphadenopathy, no venous distension - Respiratory normal expansion, normal respiratory effort, clear to auscultation - Cardiovascular Cardiovascular exam: Present: normal rate and rhythm, RRR, +S1, +S2, tachycardia. Absent: JVD - Abdomen non tender, bowel sounds (present), surgical scars (none), masses (none) - Integumentary no rash, no growths, no abnormal pigmentation - Neurologic normal coordination, normal sensation - Musculoskeletal normal gait, normal posture - Psychiatric oriented to time, oriented to person, oriented to place, speech is normal, memory intact - Additional Exam Induration of his axilla is significantly improved. He still has purulent drainage that is becoming more bloody. - Labs 03/07/19 04:10 03/05/19 12:03 Assessment and Plan (1) Abscess of axilla, left Status: Chronic Assessment and plan: We'll continue present antibiotic PICC line to be placed for home and outpatient antibiotic treatment Current Visit: No - Time Spent With Patient Total time spent is greater than 50% in coordination of care (as documented) at patient's floor/unit and/or counseling patient:
[2019-03-08] MEDS: 0.9 % SODIUM CHLORIDE 1,000 ML IV SCH ×3 (01:40→08:33)
[2019-03-08] MEDS: 0.9 % SODIUM CHLORIDE 10 ML SYRINGE IV SCH ×3 (05:18→12:03)
[2019-03-08] MEDS: PIPERACILLIN SODIUM/TAZOBACTAM 3.375 GM in DEXTROSE 5% IN WATER 50 ML IV SCH ×2 (05:18→11:29)
[2019-03-08 05:34] LABS: Hematocrit 38.1 % (41.0-55.0); Hemoglobin 12.5 g/dL (13.5-16.5); Mean Cell Volume 84.5 fL (80.0-100.0); Mean Corpuscular HGB Conc 32.8 g/dL (31.0-36.0); Mean Platelet Volume 8.6 fL (7.4-10.4); Platelet Count 353 K/mcL (140-440); RBC 4.51 M/mcL (4.50-5.90); Red Cell Distribution Width 15.4 % (11.5-14.5); WBC 10.1 K/mcL (4.5-11.0)
[2019-03-08 08:07] LABS: Band Neutrophils % 2 % (0-10); Eosinophils % (Manual) 5 % (0-7); Lymphocytes % 30 % (15-49); Monocytes % (Manual) 6 % (1-12); Platelet Estimate NORMAL (NORMAL); RBC Morphology NORMAL (NORMAL); Reactive Lymphocytes 1 % (0-2); Segmented Neutrophils % 56 % (38-78); Toxic Granulation 1+ (NONE SEEN)
[2019-03-08] MEDS: DOCUSATE SODIUM 100 MG CAPSULE PO SCH (08:30)
[2019-03-08] MEDS: LEVOFLOXACIN 750 MG/150 ML BAG IV SCH (08:31)
[2019-03-08] MEDS: ALPRAZolam 0.5 MG TABLET PO PRN (09:31)
--- NOTE | 2019-03-08 11:16 | XRay Report ---
INDICATION: Status post PICC line placement TECHNIQUE: AP chest x-ray,portable upright COMPARISON: None FINDINGS:Right-sided PICC line with its tip in the superior vena cava. Again demonstrated are bilateral parenchymal infiltrates, essentially unchanged since 03/05/2019. No change in heart size. There is a curvilinear density projected over the right lung base. Follow-up PA and lateral chest x-rays may be helpful to determine whether this is intra or extrathoracic. IMPRESSION: 1. Right-sided PICC line in good position. Tip is in the superior vena cava 2. Bilateral parenchymal infiltrates, unchanged 3. Curvilinear density projected over the right lung base as above Interpreted and Authenticated by: Abdelrahman Levin 03/08/19
[2019-03-08] MEDS: ACETAMINOPHEN 325 MG TABLET PO PRN (14:27)
--- NOTE | 2019-03-08 16:47 | Discharge Summary ---
Providers - Providers Patient information: Note initiated : 03/08/19 at 4:43 pm Service Date, if different from initiated Date: [] Patient: Elder Smith 28 y/o M admitted on 03/05/19 for Axillary Abscess . Chief Complaint: [] Date of admission: 03/05/19 Discharge date: 03/08/19 Attending physician: Gabi Mistry Hospitalization Hospital course: 28-year-old male with history of recurrent left axillary abscess. Patient was previously admitted on through February with sepsis, abscess left axilla and multiple nodular pneumonia. His only culture grew out pansensitive MSSA. Patient was treated with a combination of Levaquin, vancomycin and cefazolin. He gradually improved and was discharged home on the on oral Keflex and Levaquin. The patient had continued fevers and increased swelling in his axilla. He was seen in the office on the and was noted to have major abscess which was drained. He was readmitted and treated locally, as well as with IV Levaquin until his cultures return. Cultures still shows MSSA. Patient is afebrile at this time and his white blood count is normal. The PICC line has been inserted, and he will be treated with oral Levaquin and IV vancomycin for 2 weeks. He will be followed closely in the office and he will have follow- up chest x-rays to assure that his pneumonitis, resolved. Discharge diagnosis: left axillary abscess, recurrent Secondary discharge diagnosis: Bilateral pneumonitis Reason for admission: recurrent abscess left axilla Procedures: 9. None Pertinent studies/significant findings: None Complications: None Exam Temp Pulse Resp BP Pulse Ox 97.6 F 98 H 18 129/91 98 03/08/19 15:20 03/08/19 15:20 03/08/19 15:20 03/08/19 15:20 03/08/19 15:20 - General physical appearance well developed, well nourished, no distress - Eyes PERRL, normal ocular movement - ENT normal pinna, normal nares, normal mucosa, no hearing loss, no congestion - Head Head exam IM: Present: atraumatic, normocephalic - Neck no masses, no bruits, trachea midline, no lymphadenopathy, no venous distension - Cardiovascular Cardiovascular exam IM: Present: normal rate and rhythm - Respiratory normal expansion, normal respiratory effort, clear to auscultation - Abdomen Abdomen: Present: soft, non tender, bowel sounds Hernia: Present: none - Genitourinary Present: normal penis with no external lesions - Integumentary Present: no rash, no growths, no abnormal pigmentation, other (cellulitis left axilla has resolved; induration and lymphadenopathy left axilla significantly improved) - Neurologic Present: normal coordination, normal sensation - Musculoskeletal Present: normal gait, normal posture - Psychiatric Present: oriented to time, oriented to person, oriented to place, speech is normal, memory intact Discharge Plan - Patient/Caregiver Discharge Instructions Activity: increase activity as tolerated Diet: Regular Diet Additional Instructions: Return to the office on Monday for dressing change. Follow-up chest x-ray on 18 March Office appointment on 19 March for evaluation Follow instructions for IV antibiotics as given by the nursing service. Prescriptions: Levofloxacin [Levaquin] 750 mg PO DAILY #14 tab Vancomycin/0.9 % Sod Chloride [Vanco 1.5 gm/500 ml-0.9% NaCl] 1.5 gm IV BID #28 plast..bag - Follow up Plan Follow up with: Gabi Mistry MD [Physician] - 03/18/19 8:30 am Disposition: Home, Self-Care Prognosis: Good Rehab Potential: Good I certify that the patient requires SNF services.: No Overall status at discharge: patient is progressing back to baseline Pending Studies Resuscitation Status Full Code Diet Regular Diet Start MonMar 05 1107 Acetaminophen (Tylenol) 650 mg PO Q4HP PRN PRN Reason: PAIN/FEVER > 101 Last Admin: 03/08/19 14:27 Dose: 650 mg Documented by: Admin: 03/06/19 15:14 Dose: 650 mg Documented by: [email or web address] Alprazolam (Xanax) 1 mg PO Q8HP PRN PRN Reason: Anxiety Last Admin: 03/08/19 09:31 Dose: 1 mg Documented by: Admin: 03/07/19 21:46 Dose: 1 mg Documented by: Admin: 03/07/19 10:48 Dose: 1 mg Documented by: [email or web address] Admin: 03/06/19 22:05 Dose: 1 mg Documented by: Admin: 03/05/19 21:06 Dose: 1 mg Documented by: JIM Docusate Sodium (Colace) 100 mg PO BID [facility] Last Admin: 03/08/19 08:30 Dose: Not Given Documented by: Admin: 03/07/19 20:36 Dose: Not Given Documented by: Admin: 03/07/19 10:48 Dose: 100 mg Documented by: [email or web address] Admin: 03/06/19 21:37 Dose: Not Given Documented by: Admin: 03/06/19 11:20 Dose: Not Given Documented by: Admin: 03/05/19 21:07 Dose: Not Given Documented by: JIM Heparin Sodium (Porcine) (Heparin Flush) 2 ml IV Q12 [facility] Last Admin: 03/08/19 08:30 Dose: Not Given Documented by: Admin: 03/07/19 20:37 Dose: Not Given Documented by: Admin: 03/07/19 14:02 Dose: Not Given Documented by: [email or web address] Admin: 03/06/19 22:33 Dose: Not Given Documented by: JIM Levofloxacin (Levaquin) 750 mg in 150 mls @ 100 mls/hr IV DAILY [facility]; Protocol Last Infusion: 03/08/19 12:03 Dose: 0 mls/hr Documented by: Admin: 03/08/19 08:31 Dose: 100 mls/hr Documented by: Infusion: 03/07/19 14:26 Dose: 0 mls/hr Documented by: Admin: 03/07/19 12:54 Dose: 100 mls/hr Documented by: Infusion: 03/06/19 11:32 Dose: 0 mls/hr Documented by: Admin: 03/06/19 10:02 Dose: 100 mls/hr Documented by: Infusion: 03/05/19 14:54 Dose: 0 mls/hr Documented by: Admin: 03/05/19 13:24 Dose: 100 mls/hr Documented by: GUIDO Sodium Chloride (Sodium Chloride 0.9%) 1,000 mls @ 100 mls/hr IV .Q10H [facility] Last Admin: 03/08/19 08:33 Dose: Not Given Documented by: Admin: 03/08/19 05:18 Dose: 100 mls/hr Documented by: Infusion: 03/08/19 03:53 Dose: 100 mls/hr Documented by: Admin: 03/08/19 01:40 Dose: Not Given Documented by: Admin: 03/07/19 17:53 Dose: 100 mls/hr Documented by: [email or web address] Infusion: 03/07/19 17:50 Dose: 0 mls/hr Documented by: [email or web address] Admin: 03/07/19 01:53 Dose: 100 mls/hr Documented by: Admin: 03/06/19 15:33 Dose: Not Given Documented by: Admin: 03/06/19 07:13 Dose: Not Given Documented by: Infusion: 03/06/19 01:33 Dose: 0 mls/hr Documented by: Admin: 03/06/19 01:33 Dose: 100 mls/hr Documented by: Infusion: 03/05/19 23:24 Dose: 100 mls/hr Documented by: Admin: 03/05/19 13:24 Dose: 100 mls/hr Documented by: GUIDO Piperacillin Sod/Tazobactam (Sod 3.375 gm/ Dextrose) 50 mls @ 100 mls/hr IV Q6H [facility]; Protocol Last Infusion: 03/08/19 12:03 Dose: 0 mls/hr Documented by: Admin: 03/08/19 11:29 Dose: 100 mls/hr Documented by: Infusion: 03/08/19 08:33 Dose: 0 mls/hr Documented by: Admin: 03/08/19 05:18 Dose: 100 mls/hr Documented by: Infusion: 03/07/19 23:38 Dose: 100 mls/hr Documented by: Admin: 03/07/19 23:08 Dose: 100 mls/hr Documented by: Infusion: 03/07/19 18:33 Dose: 100 mls/hr Documented by: Admin: 03/07/19 18:03 Dose: 100 mls/hr Documented by: [email or web address] Infusion: 03/07/19 15:03 Dose: 0 mls/hr Documented by: [email or web address] Admin: 03/07/19 14:04 Dose: 100 mls/hr Documented by: [email or web address] Infusion: 03/07/19 06:00 Dose: 0 mls/hr Documented by: Admin: 03/07/19 05:15 Dose: 100 mls/hr Documented by: Infusion: 03/07/19 00:18 Dose: 100 mls/hr Documented by: Admin: 03/06/19 23:48 Dose: 100 mls/hr Documented by: Infusion: 03/06/19 21:37 Dose: 0 mls/hr Documented by: Admin: 03/06/19 18:51 Dose: 100 mls/hr Documented by: Infusion: 03/06/19 15:47 Dose: 0 mls/hr Documented by: Admin: 03/06/19 15:16 Dose: 100 mls/hr Documented by: [email or web address] Ondansetron HCl (Zofran) 4 mg IV Q6HP PRN PRN Reason: Nausea And Vomiting Last Admin: 03/05/19 21:47 Dose: 4 mg Documented by: [email or web address] Oxycodone/Acetaminophen (Percocet 10-325mg) 1 tab PO Q4HP PRN PRN Reason: PAIN LEVEL 3-6 Last Admin: 03/06/19 20:49 Dose: 1 tab Documented by: Admin: 03/05/19 19:53 Dose: 1 tab Documented by: JIM Sodium Chloride (Saline Flush) 10 ml IV Q8 [facility] Last Admin: 03/08/19 12:03 Dose: Not Given Documented by: Admin: 03/08/19 05:18 Dose: Not Given Documented by: Admin: 03/07/19 20:37 Dose: Not Given Documented by: Admin: 03/07/19 14:04 Dose: Not Given Documented by: Admin: 03/07/19 05:15 Dose: 10 ml Documented by: Admin: 03/06/19 22:33 Dose: Not Given Documented by: Admin: 03/06/19 15:33 Dose: Not Given Documented by: Admin: 03/06/19 05:23 Dose: Not Given Documented by: Admin: 03/05/19 22:21 Dose: Not Given Documented by: Admin: 03/05/19 13:49 Dose: Not Given Documented by: GUIDO Sodium Chloride (Saline Flush) 10 ml IV Q12 [facility] Last Admin: 03/08/19 08:30 Dose: Not Given Documented by: Admin: 03/07/19 20:37 Dose: Not Given Documented by: Admin: 03/07/19 14:03 Dose: Not Given Documented by: [email or web address] Admin: 03/06/19 22:33 Dose: Not Given Documented by: [email or web address] Shift Summary 03/08/19 03:55 Shift Summary by Jose L Zendejas Pt has rested well - PRN Xanax given @ 5. He has denied pain or concerns this deandre. Pt is up (I) in RM - voids QS into toilet. IV RT F/A - infusing NS @ 100ml/hr. LT axilla dressing changed x1 @ 5 - purulent obregon drainage out. VS - WNL on R.A.. PICC placement was attempted yesterday - un-successful. Will again attempt PICC placement again later today. He is A&O x4, calm, pleasant, & cooperative. Initialized on 03/08/19 03:55 - END OF NOTE
[2019-03-08] MEDS ORDERED: VANCOMYCIN 1,500 MG in 0.9 % SODIUM CHLORIDE 500 ML IV SCH (20:00)
== END 2019-03-08 18:08 | disposition home or self-care (01) | DRG 602 ==
LOC: MEDSUR 10:58
PROVIDERS: ADMIT Family Medicine Adult Medicine; ATTEND Family Medicine Adult Medicine